=== PATIENT | female | born 1945 | race Caucasian/White ===

== ENCOUNTER 2020-01-19 15:25 | Outpatient (REF) | payer MEDICARE, SELFPAY ==
[2020-01-19 15:39] LABS: Glucose Urine UA NEG (NEG); Leukocyte Esterase Urine 1+ (NEG); Nitrite Urine NEG (NEG); PH >= 9.0 (5.0-8.0); Specific Gravity - Urine <= 1.005 (1.005-1.025); Urine Blood TRACE (NEG); Urine Ketones NEG (NEG)
[2020-01-19 15:42] LABS: Appearance Urine HAZY; Color Urine YELLOW; Urine Protein 2+ MG/DL (NEG-TRACE)
[2020-01-19 15:51] LABS: Bacteria Urine 2+ /LPF; RBC Urine 0-2 /HPF (0); Squamous Epithelial Cell Urine 1+ /LPF
== END 2020-01-19 15:26 | disposition home or self-care (01) ==
LOC: HO.LNP 15:25
PROVIDERS: Visit Provider Internal Medicine
DX: N39.0 Urinary tract infection, site not specified (principal)
CPT/HCPCS: 81001; 87086

== ENCOUNTER 2020-06-03 15:03 | Outpatient (REF) | payer MEDICARE, SELFPAY ==
[2020-06-03 15:20] LABS: MANUAL DIFF FLAG NO
[2020-06-03 15:34] LABS: Basophils Percent Auto 0.5 % (0-2); Eosinophils Absolute Auto 0.2 X10*3/uL (0.0-0.4); Eosinophils Percent Auto 2.5 % (0-4); Hematocrit 28.6 % (37-47); Hemoglobin 8.5 g/dl (12.0-16.0); Imm Gran Abs Auto 0.02 X10*3/uL (0.00-0.03); Imm Gran Pct Auto 0.3 % (0.0-0.4); Lymphocytes Absolute Auto 1.2 X10*3/uL (1.2-4.9); Mean Corpuscular HGB Conc 29.7 g/dl (31.0-35.0); Mean Corpuscular Hemoglobin 29.1 pg (27.0-33.0); Mean Corpuscular Volume 97.9 fL (80-98); Mean Platelet Volume 11.5 fL (9.4-12.3); Monocytes Absolute Auto 0.3 X10*3/uL (0.1-1.2); Monocytes Percent Auto 5.1 % (2-11); Neutrophils Absolute Auto 4.3 X10*3/uL (2.0-8.3); Neutrophils Percent Auto 71.6 % (45-73); Platelet Count 184 X10*3/uL (160-400); Red Blood Count 2.92 X10*6/uL (4.20-5.50); Red Cell Distribution Width 14.2 % (11.0-16.0); White Blood Count 6.1 X10*3/uL (4.8-10.8)
[2020-06-03 15:52] LABS: Glucose Urine UA NEG (NEG); Leukocyte Esterase Urine 2+ (NEG); Nitrite Urine POS (NEG); UACC Culture Trigger YES; Urine Blood 1+ (NEG); Urine Ketones NEG (NEG); Urine Protein 2+ MG/DL (NEG-TRACE)
[2020-06-03 15:53] LABS: Appearance Urine TURBID; Color Urine YELLOW
[2020-06-03 15:58] LABS: Albumin Level 3.3 g/dL (3.5-5.0); Calcium 8.2 mg/dL (8.4-10.2); Magnesium 2.6 mg/dL (1.6-2.6); Phosphorus 6.5 mg/dL (2.7-4.5)
[2020-06-03 16:06] LABS: Bacteria Urine 3+ /LPF; UACC CULT YES
[2020-06-03 16:13] LABS: Anion Gap 15 (12-20); Blood Urea Nitrogen 31 mg/dL (9-16); Calcium 9.5 mg/dL (8.4-10.2); Carbon Dioxide 28 mmol/L (22-29); Chloride 97 mmol/L (96-108); Estimated Glomerular Filt Rate > 60; Glucose Random 97 mg/dL (60-115); Potassium 3.5 mmol/L (3.3-5.1); Sodium 136 mmol/L (135-145)
[2020-06-03 16:22] LABS: Vitamin D 25-OH Total 20.3 ng/mL (>30)
[2020-06-03 16:26] LABS: Creatinine Urine 33.98 mg/dL; Total Protein Urine Random 204 mg/dL (<12)
[2020-06-03 17:10] LABS: Renal w Reflex Lab Use Only Order verified
[2020-06-07 11:07] LABS: Calcium (PTHI) 8.4 mg/dL (8.6-10.4); PTHI 179 pg/mL (14-64)
== END 2020-06-03 15:04 | disposition home or self-care (01) ==
LOC: HO.LNP 15:03
PROVIDERS: Referring Provider Internal Medicine Geriatric Medicine; Visit Provider Internal Medicine Nephrology
DX: E11.22 Type 2 diabetes mellitus with diabetic chronic kidney disease (principal); N18.4 Chronic kidney disease, stage 4 (severe); D63.1 Anemia in chronic kidney disease; D50.9 Iron deficiency anemia, unspecified
CPT/HCPCS: 80048; 81001; 82040; 82043; 82306; 82310; 83735; 83970; 84100; 84156; 85025; 87086

== ENCOUNTER 2020-07-06 10:53 | Inpatient (IN) | payer MEDICARE, SELFPAY ==
--- NOTE | ~2020-07-06 | XR_ITS ---
EXAMINATION: XR CHEST CLINICAL INFORMATION: Generalized weakness COMPARISON: Chest 05/17/2016 TECHNIQUE: Frontal view of the chest was obtained. FINDINGS: The lungs are well-expanded and clear. The heart size enlarged with increased pulmonary vascularity suspicious for mild congestion. No gross bony abnormality. XR/XR chest 1V IMPRESSION: Cardiomegaly with mild pulmonary vascular congestion.
[2020-07-06 11:15] VITALS: BP 143/82; BP 151/43; PULSE 84; RESP 16; TEMP 37.1; O2SAT 100; O2SAT 96; BMI 41.8
--- NOTE | 2020-07-06 11:57 | ECG_ITS ---
Test Reason : WEAKNESS Blood Pressure : / mmHG Vent. Rate : 085 BPM Atrial Rate : 085 BPM P-R Int : 176 ms QRS Dur : 132 ms QT Int : 406 ms P-R-T Axes : -14 -20 148 degrees QTc Int : 483 ms Sinus rhythm with Premature supraventricular complexes Left bundle branch block Abnormal ECG When compared with ECG of 16-JUL-2017 14:38, Premature supraventricular complexes are now Present Referred By: Kya Meade Electronically Signed By:LIA PEARSON
--- NOTE | 2020-07-06 11:58 | ED_ITS ---
HPI - General Adult General Chief complaint: General Medical Stated complaint: weakness/lethargy Time Seen by Provider: 07/06/20 11:55 Source: patient and EMS Mode of arrival: EMS Limitations: no limitations History of Present Illness HPI narrative: 75-year-old female came in for further evaluation of generalized weakness assessment. 75-year-old female who lives home with her son patient is mostly independent living, for the past 3 4 days decreased p.o. intake and feeling generalized weakness.. Patient has bilateral lower extremity swelling and chronic wound that is been taking care by a visiting nurse there is no acute issue was the wound today. Patient declined chest pain, shortness of breath. Related Data Home Medications Medication Instructions Recorded Confirmed acetaminophen 500 mg PO Q6H PRN 07/06/20 07/06/20 aspirin 81 mg PO DAILY 07/06/20 07/06/20 calcitriol 0.25 mcg PO MOWEFR@0900 07/06/20 07/06/20 cholecalciferol (vitamin D3) 50 mcg PO DAILY 07/06/20 07/06/20 [Vitamin D3] docusate sodium 100 mg PO BID 07/06/20 07/06/20 famotidine 20 mg PO DAILY 07/06/20 07/06/20 ferrous sulfate 325 mg PO DAILY 07/06/20 07/06/20 furosemide 80 mg PO DAILY 07/06/20 07/06/20 gabapentin 300 mg PO BID 07/06/20 07/06/20 hydralazine 100 mg PO BID 07/06/20 07/06/20 insulin glargine U-300 conc 34 unit SUBCUT BEDTIME 07/06/20 07/06/20 [Toujeo SoloStar U-300 Insulin] insulin lispro [Humalog KwikPen See Protocol SUBCUT TID 07/06/20 07/06/20 Insulin] lovastatin 40 mg PO BEDTIME 07/06/20 07/06/20 metolazone 2.5 mg PO MOWEFR@0900 07/06/20 07/06/20 sennosides [Senna Lax] 8.6 mg PO BEDTIME 07/06/20 07/06/20 Previous Rx's Medication Instructions Recorded blood sugar diagnostic #10 ea 02/05/20 lorazepam 0.5 mg tablet 0.5 mg PO BID PRN #180 tab 02/17/20 pen needle, diabetic 32 gauge x #400 ea 02/17/20 pen needle, diabetic 32 gauge x #400 ea 04/19/20 oxycodone 5 mg tablet 5 mg PO Q6H PRN #120 tab 06/24/20 Allergies Allergy/AdvReac Type Severity Reaction Status Date / Time pregabalin Allergy Unknown feet Verified 01/22/20 11:25 swelling Review of Systems Review of Systems: All other systems are reviewed and are negative Constitutional: Reports as per HPI and Reports no additional constitutional complaints Eyes: Reports as per HPI and Reports no additional eye complaints Reports system reviewed and no additional complaints, except as documented Cardiovascular: Reports as per HPI and Reports no additional cardiovascular complaints Respiratory: Reports as per HPI and Reports no additional respiratory complaints Gastrointestinal: Reports as per HPI and Reports no additional gastrointestinal complaints Genitourinary: Reports no additional female genitourinary complaints Musculoskeletal: Reports no additional musculoskeletal complaints Skin/Breast: Reports system reviewed and no additional complaints, except as docu Psychiatric: Reports no additional psychiatric complaints Endocrine: Reports no additional endocrine complaints Hematologic/Lymphatic: Reports no additional hematologic/lymphatic complaints Allergic/Immunologic: Reports no additional allergic/immunologic complaints Reports system reviewed and no additional complaints, except as documented and Reports Abnormal speech present [facility] Past Medical History Medical History Chronic renal insufficiency Diabetes type 2, uncontrolled Surgical History History of cystoscopy History of right cataract surgery History of tubal ligation Family History Family History Father Lung cancer Mother Hypertension Social History Social History Alcohol intake: never Smoking Status: Never smoker Advance Directives: Yes Advance Directives Information Provided: Yes Advance Directives on File: No Physical Exam Vital Signs: Vital Signs: Last Vital Signs Temp 97.7 F 07/06/20 13:14 Pulse 85 07/06/20 13:14 Resp 18 07/06/20 13:14 BP 185/50 H 07/06/20 13:14 Pulse Ox 97 07/06/20 13:14 Body Mass Index 41.8 Vital signs have been reviewed as appeared to be correct. Blood pressure normal. Heart rate normal. Respiration rate normal. Temperature normal. Oxygen saturation normal. Appearance: Alert. Oriented X3. No acute distress. Head: Normal external exam. Normocephalic. Atraumatic. No Kumari signs noted. No raccoon eyes noted Eyes: PERRLA. EOMI. Conjunctiva and sclera normal. Eyelids normal. ENT: TM's Normal. Pharynx normal. Uvula midline. Moist mucous membranes. No trismus noted. No drooling noted. No muffled voice noted. Neck: Normal inspection. Neck supple. FROM. No adenopathy. Thyroid Normal. No meningeal signs. No neck mass noted. CVS: Normal heart rate and rhythm. Heart sound normal. No murmurs noted. Pulses normal throughout. Respiratory: No respiratory distress. Painless inspiration. Breath sounds normal. No wheezes/rales/rhonchi noted. Chest nontender. No accessory muscle usage noted or decreased air movement noted. Abdomen: Soft and nontender. Bowel sounds normal in all 4 quadrants. No distention noted. No organomegaly noted. No visible injury noted. Back: No CVA tenderness. Full range of motion noted. Skin: Skin warm and dry. Normal skin color. Normal skin turgor. No rashes/lesions/lacerations noted. Extremities: Bilateral lower extremities +2 pitting edema edema, with chronic wound bilaterally. Neuro: Oriented X 3. No motor deficit. No sensory deficit. Reflexes normal. Course Course Course Narrative: Assessment and plan. 75-year-old female with chronic renal failure has not started dialysis yet presented with 3-4 days of generalized weakness decreased p.o. intake, not drinking enough fluid. Labs and finding are more consistent with UTI and dehydration without sepsis. Olvera was inserted with initially 400 cc of urine came out. Patient received IV fluids, ceftriaxone IV and will admit. Medical Decision Making Lab Data Lab results reviewed: Yes I reviewed the patient's lab results. Result diagrams: 07/06/20 12:25 07/06/20 12:25 Labs: Lab Results 07/06/20 07/06/20 07/06/20 Range/Units 12:25 12:25 12:25 WBC 8.3 (4.8-10.8) X10*3/uL RBC 3.02 L (4.20-5.50) X10*6/uL Hgb 8.7 L (12.0-16.0) g/dl Hct 29.8 L (37-47) % MCV 98.7 H (80-98) fL MCH 28.8 (27.0-33.0) pg MCHC 29.2 L (31.0-35.0) g/dl RDW 15.1 (11.0-16.0) % Plt Count 181 (160-400) X10*3/uL MPV 10.6 (9.4-12.3) fL Immature Gran % (Auto) 0.5 H (0.0-0.4) % Neut % (Auto) 78.0 H (45-73) % Lymph % (Auto) 16.4 L (20-40) % [place] % (Auto) 4.0 (2-11) % Eos % (Auto) 0.7 (0-4) % Baso % (Auto) 0.4 (0-2) % Lymph # (Auto) 1.4 (1.2-4.9) X10*3/uL [place] # (Auto) 0.3 (0.1-1.2) X10*3/uL Eos # (Auto) 0.1 (0.0-0.4) X10*3/uL Baso # (Auto) 0.0 (0.0-0.2) X10*3/uL Abs Immat Gran (auto) 0.04 H (0.00-0.03) X10*3/uL Absolute Neuts (auto) 6.5 (2.0-8.3) X10*3/uL Absolute Nucleated RBC 0.000 (0.0-0.012) X10*3/uL Nucleated RBC % (auto) 0.0 (0.0-0.2) /100WBC Sodium 146 H (135-145) mmol/L Potassium 4.9 D (3.3-5.1) mmol/L Chloride 116 H (96-108) mmol/L Carbon Dioxide 14 L (22-29) mmol/L Anion Gap 21 H (12-20) BUN 117 H* D (9-16) mg/dL Creatinine 4.78 H* (0.5-1.4) mg/dL Estim Creat Clear Calc 10.5 Estimated GFR 9 Random Glucose 96 (60-115) mg/dL Lactic Acid (0.5-2.0) mmol/L Calcium 7.9 L (8.4-10.2) mg/dL Total Bilirubin 0.2 (0.0-1.0) mg/dL Direct Bilirubin 0.2 (0.0-0.5) mg/dL AST 9 (5-31) U/L ALT < 6 (0-31) U/L Alkaline Phosphatase 90 (39-117) U/L Troponin I High Sens 11.7 (<3.5-17.0) ng/L B-Natriuretic Peptide 265 H (<100) pg/mL Total Protein 6.8 (6.5-8.0) g/dL Albumin 3.3 L (3.5-5.0) g/dL Lipase 35 (8-78) U/L Urine Color Urine Appearance Urine pH (5.0-8.0) Ur Specific [place] (1.005-1.025) Urine Protein (NEG-TRACE) MG/DL Urine Glucose (UA) (NEG) MG/DL Urine Ketones (NEG) MG/DL Urine Blood (NEG) Urine Nitrite (NEG) Ur Leukocyte Esterase (NEG) Urine RBC (0) /HPF Urine WBC (0-4) /HPF Ur Squamous Epith Cells /LPF Triple Phos Crystals /LPF Urine Bacteria /LPF COVID-19 ([facility]) (Negative) COVID-19 Clin Com 07/06/20 07/06/20 07/06/20 Range/Units 12:25 12:25 13:17 WBC (4.8-10.8) X10*3/uL RBC (4.20-5.50) X10*6/uL Hgb (12.0-16.0) g/dl Hct (37-47) % MCV (80-98) fL MCH (27.0-33.0) pg MCHC (31.0-35.0) g/dl RDW (11.0-16.0) % Plt Count (160-400) X10*3/uL MPV (9.4-12.3) fL Immature Gran % (Auto) (0.0-0.4) % Neut % (Auto) (45-73) % Lymph % (Auto) (20-40) % [place] % (Auto) (2-11) % Eos % (Auto) (0-4) % Baso % (Auto) (0-2) % Lymph # (Auto) (1.2-4.9) X10*3/uL [place] # (Auto) (0.1-1.2) X10*3/uL Eos # (Auto) (0.0-0.4) X10*3/uL Baso # (Auto) (0.0-0.2) X10*3/uL Abs Immat Gran (auto) (0.00-0.03) X10*3/uL Absolute Neuts (auto) (2.0-8.3) X10*3/uL Absolute Nucleated RBC (0.0-0.012) X10*3/uL Nucleated RBC % (auto) (0.0-0.2) /100WBC Sodium (135-145) mmol/L Potassium (3.3-5.1) mmol/L Chloride (96-108) mmol/L Carbon Dioxide (22-29) mmol/L Anion Gap (12-20) BUN (9-16) mg/dL Creatinine (0.5-1.4) mg/dL Estim Creat Clear Calc Estimated GFR Random Glucose (60-115) mg/dL Lactic Acid 0.5 (0.5-2.0) mmol/L Calcium (8.4-10.2) mg/dL Total Bilirubin (0.0-1.0) mg/dL Direct Bilirubin (0.0-0.5) mg/dL AST (5-31) U/L ALT (0-31) U/L Alkaline Phosphatase (39-117) U/L Troponin I High Sens (<3.5-17.0) ng/L B-Natriuretic Peptide (<100) pg/mL Total Protein (6.5-8.0) g/dL Albumin (3.5-5.0) g/dL Lipase (8-78) U/L Urine Color BROWN Urine Appearance TURBID Urine pH >= 9.0 H (5.0-8.0) Ur Specific [place] 1.010 (1.005-1.025) Urine Protein 3+ H (NEG-TRACE) MG/DL Urine Glucose (UA) NEG (NEG) MG/DL Urine Ketones 5 (NEG) MG/DL Urine Blood 3+ H (NEG) Urine Nitrite POS H (NEG) Ur Leukocyte Esterase 3+ H (NEG) Urine RBC TNTC H (0) /HPF Urine WBC TNTC H (0-4) /HPF Ur Squamous Epith Cells NONE /LPF Triple Phos Crystals TRACE /LPF Urine Bacteria 4+ /LPF COVID-19 ([facility]) Negative (Negative) COVID-19 Clin Com See Note Imaging Data Chest x-ray: Radiologist's impression: Cardiomegaly with mild pulmonary vascular congestion. ECG Data Interpretation: Sinus rhythm at 85 beats per minutes, left bundle branch block, unchanged from previous EKG. Discharge Plan Discharge Clinical Impression: Chronic renal insufficiency, Acute UTI, Acute dehydration Patient Disposition: Admitted As Inpatient Prescriptions: No Action (DME) OneTouch Ultra Blue Test Strip Strip See Rx Instructions .ROUTE .MEDSUPPLY Qty: 10 RF: 8 lorazepam 0.5 mg tablet 0.5 mg PO BID PRN (Reason: anxiety) Qty: 180 RF: 5 (DME) pen needle, diabetic [BD Ayehsa 2nd Gen Pen Needle] 32 gauge x 5/32 needle See Rx Instructions .MEDSUPPLY Qty: 400 RF: 4 (DME) pen needle, diabetic [BD Ayesha 2nd Gen Pen Needle] 32 gauge x 5/32 needle See Rx Instructions .MEDSUPPLY Qty: 400 RF: 4 oxycodone 5 mg tablet 5 mg PO Q6H PRN (Reason: pain) Qty: 120 RF: 0 metolazone 2.5 mg Tablet 2.5 mg PO MOWEFR@0900 RF: 0 sennosides [Senna Lax] 8.6 mg Tablet 8.6 mg PO BEDTIME RF: 0 aspirin 81 mg Tablet,Delayed Release (Dr/Ec) 81 mg PO DAILY RF: 0 acetaminophen 500 mg Tablet 500 mg PO Q6H PRN (Reason: Pain (Scale Score 1-3)) RF: 0 famotidine 20 mg Tablet 20 mg PO DAILY RF: 0 furosemide 80 mg Tablet 80 mg PO DAILY RF: 0 ferrous sulfate 325 mg (65 mg iron) Tablet 325 mg PO DAILY RF: 0 docusate sodium 100 mg Capsule 100 mg PO BID RF: 0 gabapentin 300 mg Capsule 300 mg PO BID RF: 0 hydralazine 50 mg Tablet 100 mg PO BID RF: 0 insulin lispro [Humalog KwikPen Insulin] 100 unit/mL Insulin Pen See Protocol unit SUBCUT TID RF: 0 cholecalciferol (vitamin D3) [Vitamin D3] 50 mcg (2,000 unit) Capsule 50 mcg PO DAILY RF: 0 Toujeo SoloStar U-300 Insulin 300 unit/mL (1.5 mL) Insulin Pen 34 unit SUBCUT BEDTIME RF: 0 lovastatin 40 mg tablet 40 mg PO BEDTIME RF: 0 calcitriol 0.25 mcg capsule 0.25 mcg PO MOWEFR@0900 RF: 0
[2020-07-06 12:34] LABS: MANUAL DIFF FLAG NO
[2020-07-06 12:38] LABS: Basophils Percent Auto 0.4 % (0-2); Eosinophils Absolute Auto 0.1 X10*3/uL (0.0-0.4); Eosinophils Percent Auto 0.7 % (0-4); Hematocrit 29.8 % (37-47); Hemoglobin 8.7 g/dl (12.0-16.0); Imm Gran Abs Auto 0.04 X10*3/uL (0.00-0.03); Imm Gran Pct Auto 0.5 % (0.0-0.4); Lymphocytes Absolute Auto 1.4 X10*3/uL (1.2-4.9); Lymphocytes Percent Auto 16.4 % (20-40); Mean Corpuscular HGB Conc 29.2 g/dl (31.0-35.0); Mean Corpuscular Hemoglobin 28.8 pg (27.0-33.0); Mean Corpuscular Volume 98.7 fL (80-98); Mean Platelet Volume 10.6 fL (9.4-12.3); Monocytes Absolute Auto 0.3 X10*3/uL (0.1-1.2); Neutrophils Absolute Auto 6.5 X10*3/uL (2.0-8.3); Platelet Count 181 X10*3/uL (160-400); Red Blood Count 3.02 X10*6/uL (4.20-5.50); Red Cell Distribution Width 15.1 % (11.0-16.0); White Blood Count 8.3 X10*3/uL (4.8-10.8)
[2020-07-06 12:56] LABS: Lactic Acid 0.5 mmol/L (0.5-2.0)
[2020-07-06 12:58] LABS: COVID-19 Test Negative (Negative)
[2020-07-06 13:04] LABS: Alanine Aminotransferase < 6 U/L (0-31); Albumin Level 3.3 g/dL (3.5-5.0); Alkaline Phosphatase 90 U/L (39-117); Anion Gap 21 (12-20); Aspartate Amino Transferase 9 U/L (5-31); Bilirubin Direct 0.2 mg/dL (0.0-0.5); Bilirubin Total 0.2 mg/dL (0.0-1.0); Blood Urea Nitrogen 117 mg/dL (9-16); Calcium 7.9 mg/dL (8.4-10.2); Carbon Dioxide 14 mmol/L (22-29); Chloride 116 mmol/L (96-108); Creatinine Clr Calc Pharmacy 10.5; Estimated Glomerular Filt Rate 9; Glucose Random 96 mg/dL (60-115); Lipase 35 U/L (8-78); Potassium 4.9 mmol/L (3.3-5.1); Sodium 146 mmol/L (135-145); Total Protein 6.8 g/dL (6.5-8.0)
[2020-07-06 13:05] LABS: B Type Natriuretic Peptide 265 pg/mL (<100); Troponin-I High Sensitivity 11.7 ng/L (<3.5-17.0)
[2020-07-06] MEDS: 0.9 % Sodium Chloride 1,000 ML 999 ML IVCONT ×2 (13:05→14:12)
[2020-07-06 13:14] VITALS: BP 185/50; PULSE 85; RESP 18; TEMP 36.5; O2SAT 97
[2020-07-06 13:27] LABS: Glucose Urine UA NEG (NEG); Leukocyte Esterase Urine 3+ (NEG); Nitrite Urine POS (NEG); PH >= 9.0 (5.0-8.0); UACC Culture Trigger YES; Urine Blood 3+ (NEG); Urine Ketones 5 MG/DL (NEG)
[2020-07-06 13:28] LABS: Appearance Urine TURBID; Color Urine BROWN; Urine Protein 3+ MG/DL (NEG-TRACE)
[2020-07-06 13:41] LABS: Bacteria Urine 4+ /LPF; RBC Urine TNTC /HPF (0); Triple Phosphate Crystal Urine TRACE /LPF; WBC Urine TNTC /HPF (0-4)
[2020-07-06] MEDS: cefTRIAXone sodium 1 GM in 0.9 % Sodium Chloride 50 ML IV (14:11)
[2020-07-06 14:44] VITALS: BP 176/58; PULSE 85; RESP 18; TEMP 36.4; O2SAT 97
--- NOTE | 2020-07-06 14:55 | PC.NURSE ---
Patient arrived from home, with weeping bilateral leg edema, and incontinent or foul smelling urine Patient cleaned up linens changed and placed in hospital clothing. Olvera cath placed labs done and meds given as ordered waiting for admission.
[2020-07-06 15:40] LABS: Glucose, Whole Blood 76 mg/dL (60-115)
--- NOTE | 2020-07-06 16:04 | PM.IMHP ---
History of Present Illness Date of Service: 07/06/20 Chief Complaint: lethargy 75F with pmh of CKD V presented with lethargy. patient states that for the last week or so she has been having decreasing appetite and po intake. she feels nauseous and lethargic. she is chronically edematous and sob with no changes. she has been sleeping in a recliner for the last few years. patient denies chest pain, fever, chills, cough. in ED noted to have worsening bun/cr of 117/4.78. patient does have an AV fistula that was placed several years ago and follows with dr hopkins. she aslo had a positive UA with questionable dysuria symptoms. Review of Systems Review of Systems: Constitutional: Denies fever, denies Chills Eyes: denies blurry vision ENT: denies sore throat CVS: denies chest pain Respiratory: dyspnea GI: no abdominal pain : dysuria MSK: denies neck pain Skin: denies rash Neuro: denies specific motor weakness Psych: denies suicidal ideation Endocrine: denies heat/cold intoleratnce Hematologic: denies easy bleeding Allergy: denies hives [facility] Medical History Chronic diastolic (congestive) heart failure CKD (chronic kidney disease), stage V COPD (chronic obstructive pulmonary disease) Diabetes type 2, uncontrolled Morbid obesity Functional capacity: uses cane/walker Family History Father Lung cancer Mother Hypertension Surgical History History of cystoscopy History of right cataract surgery History of tubal ligation Social History Alcohol intake: never Smoking Status: Never smoker Advance Directives: Yes Advance Directives Information Provided: Yes Advance Directives on File: No Meds Allergies Allergy/AdvReac Type Severity Reaction Status Date / Time pregabalin Allergy Unknown feet Verified 01/22/20 11:25 swelling Active Medications: Current Medications Generic Name Dose Route Start Last Admin Trade Name Freq PRN Reason Stop Dose Admin Pharmacy Consult 1 each 07/06/20 11:57 Consult Rx Perform Med Rec MISCELLANE ONCE PRN Consult order Home Medications Medication Instructions Recorded Confirmed Last Taken Type acetaminophen 500 mg PO Q6H PRN 07/06/20 07/06/20 07/05/20 History aspirin 81 mg PO DAILY 07/06/20 07/06/20 07/05/20 History calcitriol 0.25 mcg PO MOWEFR@0900 07/06/20 07/06/20 07/05/20 History cholecalciferol (vitamin D3) 50 mcg PO DAILY 07/06/20 07/06/20 07/05/20 History [Vitamin D3] docusate sodium 100 mg PO BID 07/06/20 07/06/20 07/05/20 History famotidine 20 mg PO DAILY 07/06/20 07/06/20 07/05/20 History ferrous sulfate 325 mg PO DAILY 07/06/20 07/06/20 07/05/20 History furosemide 80 mg PO DAILY 07/06/20 07/06/20 07/05/20 History gabapentin 300 mg PO BID 07/06/20 07/06/20 07/05/20 History hydralazine 100 mg PO BID 07/06/20 07/06/20 07/05/20 History insulin glargine U-300 conc 34 unit SUBCUT BEDTIME 07/06/20 07/06/20 07/05/20 History [Toujeo SoloStar U-300 Insulin] insulin lispro [Humalog KwikPen See Protocol SUBCUT TID 07/06/20 07/06/20 07/05/20 History Insulin] lovastatin 40 mg PO BEDTIME 07/06/20 07/06/20 07/05/20 History metolazone 2.5 mg PO MOWEFR@0900 07/06/20 07/06/20 07/05/20 History sennosides [Senna Lax] 8.6 mg PO BEDTIME 07/06/20 07/06/20 07/05/20 History Physical Exam Vital Signs and Narrative: Vital Signs: Last Vital Signs Temp 97.5 F 07/06/20 14:44 Pulse 85 07/06/20 14:44 Resp 18 07/06/20 14:44 BP 176/58 H 07/06/20 14:44 Pulse Ox 97 07/06/20 14:44 Body Mass Index 41.8 General: no acute distress, lethargic, edematous HEENT: atraumatic Neck: normal to visual inspection CVS: S1, S2, RRR Resp: diminished Chest: non tender GI: soft, non tender, non distended : no CVA tenderness Skin: no rashes Extremities: no edema Neuro: Oriented X3, grossly intact Psych: cooperative Results Labs CBC and Chem 7: 07/06/20 12:25 07/06/20 12:25 Labs: Laboratory Results - last 24 hr 07/06/20 07/06/20 07/06/20 12:25 12:25 12:25 MCV 98.7 H MCH 28.8 MCHC 29.2 L RDW 15.1 Plt Count 181 MPV 10.6 Immature Gran % (Auto) 0.5 H Neut % (Auto) 78.0 H Lymph % (Auto) 16.4 L [place] % (Auto) 4.0 Eos % (Auto) 0.7 Baso % (Auto) 0.4 Lymph # (Auto) 1.4 [place] # (Auto) 0.3 Eos # (Auto) 0.1 Baso # (Auto) 0.0 Abs Immat Gran (auto) 0.04 H Absolute Neuts (auto) 6.5 Absolute Nucleated RBC 0.000 Nucleated RBC % (auto) 0.0 Anion Gap 21 H Estim Creat Clear Calc 10.5 Estimated GFR 9 POC Glucose Random Glucose 96 Lactic Acid Calcium 7.9 L Total Bilirubin 0.2 Direct Bilirubin 0.2 AST 9 ALT < 6 Alkaline Phosphatase 90 Troponin I High Sens 11.7 B-Natriuretic Peptide 265 H Total Protein 6.8 Albumin 3.3 L Lipase 35 Urine Color Urine Appearance Urine pH Ur Specific [place] Urine Protein Urine Glucose (UA) Urine Ketones Urine Blood Urine Nitrite Ur Leukocyte Esterase Urine RBC Urine WBC Ur Squamous Epith Cells Triple Phos Crystals Urine Bacteria COVID-19 ([facility]) COVID-19 Clin Com 07/06/20 07/06/20 07/06/20 12:25 12:25 13:17 MCV MCH MCHC RDW Plt Count MPV Immature Gran % (Auto) Neut % (Auto) Lymph % (Auto) [place] % (Auto) Eos % (Auto) Baso % (Auto) Lymph # (Auto) [place] # (Auto) Eos # (Auto) Baso # (Auto) Abs Immat Gran (auto) Absolute Neuts (auto) Absolute Nucleated RBC Nucleated RBC % (auto) Anion Gap Estim Creat Clear Calc Estimated GFR POC Glucose Random Glucose Lactic Acid 0.5 Calcium Total Bilirubin Direct Bilirubin AST ALT Alkaline Phosphatase Troponin I High Sens B-Natriuretic Peptide Total Protein Albumin Lipase Urine Color BROWN Urine Appearance TURBID Urine pH >= 9.0 H Ur Specific [place] 1.010 Urine Protein 3+ H Urine Glucose (UA) NEG Urine Ketones 5 Urine Blood 3+ H Urine Nitrite POS H Ur Leukocyte Esterase 3+ H Urine RBC TNTC H Urine WBC TNTC H Ur Squamous Epith Cells NONE Triple Phos Crystals TRACE Urine Bacteria 4+ COVID-19 ([facility]) Negative COVID-19 Clin Com See Note 07/06/20 15:35 MCV MCH MCHC RDW Plt Count MPV Immature Gran % (Auto) Neut % (Auto) Lymph % (Auto) [place] % (Auto) Eos % (Auto) Baso % (Auto) Lymph # (Auto) [place] # (Auto) Eos # (Auto) Baso # (Auto) Abs Immat Gran (auto) Absolute Neuts (auto) Absolute Nucleated RBC Nucleated RBC % (auto) Anion Gap Estim Creat Clear Calc Estimated GFR POC Glucose 76 Random Glucose Lactic Acid Calcium Total Bilirubin Direct Bilirubin AST ALT Alkaline Phosphatase Troponin I High Sens B-Natriuretic Peptide Total Protein Albumin Lipase Urine Color Urine Appearance Urine pH Ur Specific [place] Urine Protein Urine Glucose (UA) Urine Ketones Urine Blood Urine Nitrite Ur Leukocyte Esterase Urine RBC Urine WBC Ur Squamous Epith Cells Triple Phos Crystals Urine Bacteria COVID-19 ([facility]) COVID-19 Clin Com Imaging Radiologist's Impressions: Impressions Chest X-Ray 07/06/20 11:57 IMPRESSION: Cardiomegaly with mild pulmonary vascular congestion. Assessment and Plan (1) ALEJANDRO (acute kidney injury): Status: Acute 75F presented with lethargy found to have worsening renal function metabolic encephalopathy and anorexia due to Uremia from ALEJANDRO on CKD V gentle hydration, monitor bmp, hold diuretics, nephrology eval has AV fistula DM basal bolus insulin chronic diastolic chf will be careful with hydration, holding diuretics morbid obesity weight loss COPD stable UTI ceftriaxone, follow up culture
[2020-07-06 18:00] VITALS: BP 149/56; PULSE 83; RESP 17; O2SAT 97
--- NOTE | 2020-07-06 19:19 | PC.NURSE ---
imc called to give report and rn will call back for report.
--- NOTE | 2020-07-06 19:30 | PC.NURSE ---
nurse to nurse report given to leonard ferrer. in 10 min the room will be ready
[2020-07-06 20:00] VITALS: BP 159/83; PULSE 81; RESP 20; TEMP 36; O2SAT 94
[2020-07-06 20:52] LABS: Glucose, Whole Blood 127 mg/dL (60-115)
[2020-07-06 21:03] VITALS: BP 150/84; PULSE 86
[2020-07-06] MEDS: hydrALAZINE HCl 50 MG TABLET 100 MG PO (21:03)
[2020-07-06] MEDS: Heparin Sodium,Porcine 5,000 UNIT/ML VIAL 5000 UNIT SUBCUT (21:05)
[2020-07-06] MEDS: Gabapentin 300 MG CAPSULE PO (21:05)
[2020-07-06] MEDS: Pravastatin Sodium 40 MG TABLET PO (21:05)
[2020-07-06] MEDS: LORazepam 0.5 MG TABLET PO (21:08)
[2020-07-06] MEDS: Lactated Ringers 500 ML 50 ML IVCONT (21:15)
[2020-07-07] VITALS (7 sets, daily range): BP systolic 121–184; BP diastolic 49–76; PULSE 78–88; RESP 18–20; TEMP 36.1–36.7; O2SAT 93–96; BMI 41.8
[2020-07-07] MEDS: 0.9 % Sodium Chloride Flush 3 ML SYRINGE IVFLUSH ×2 (03:13→09:37)
[2020-07-07 06:09] LABS: MANUAL DIFF FLAG NO
[2020-07-07 06:37] LABS: Basophils Percent Auto 0.3 % (0-2); Eosinophils Absolute Auto 0.2 X10*3/uL (0.0-0.4); Eosinophils Percent Auto 1.7 % (0-4); Hematocrit 27.1 % (37-47); Hemoglobin 7.9 g/dl (12.0-16.0); Imm Gran Abs Auto 0.03 X10*3/uL (0.00-0.03); Imm Gran Pct Auto 0.3 % (0.0-0.4); Lymphocytes Absolute Auto 1.8 X10*3/uL (1.2-4.9); Lymphocytes Percent Auto 20.3 % (20-40); Mean Corpuscular HGB Conc 29.2 g/dl (31.0-35.0); Mean Corpuscular Hemoglobin 28.6 pg (27.0-33.0); Mean Corpuscular Volume 98.2 fL (80-98); Monocytes Absolute Auto 0.5 X10*3/uL (0.1-1.2); Monocytes Percent Auto 5.7 % (2-11); Neutrophils Absolute Auto 6.2 X10*3/uL (2.0-8.3); Neutrophils Percent Auto 71.7 % (45-73); Platelet Count 165 X10*3/uL (160-400); Red Blood Count 2.76 X10*6/uL (4.20-5.50); Red Cell Distribution Width 15.3 % (11.0-16.0); White Blood Count 8.7 X10*3/uL (4.8-10.8)
[2020-07-07 06:39] LABS: Anion Gap 17 (12-20); Blood Urea Nitrogen 116 mg/dL (9-16); Calcium 7.9 mg/dL (8.4-10.2); Carbon Dioxide 14 mmol/L (22-29); Chloride 120 mmol/L (96-108); Potassium 5.1 mmol/L (3.3-5.1); Sodium 146 mmol/L (135-145)
[2020-07-07 06:41] LABS: Creatinine Clr Calc Pharmacy 11.1; Estimated Glomerular Filt Rate 10; Glucose Random 52 mg/dL (60-115)
[2020-07-07 07:32] LABS: Glucose, Whole Blood 169 mg/dL (60-115)
--- NOTE | 2020-07-07 09:27 | MHC.CM.PN ---
IMM 07/07/20 Female 75 dx ALEJANDRO She lives with her son. She uses a walker and requires assist with ADLs. She has a [employer] thru [facility] 5 hours/week. She also receives VNA services 3 x a week from [facility]. The Pt states that she has a HCP. It is documented that [facility] has the HCP on file. Unable to locate HCP. record. A copy has been requested. DP resume [facility]/[employer] and [facility] homecare services. The Pts family will provide transportation. CM will follow.
[2020-07-07] MEDS: Heparin Sodium,Porcine 5,000 UNIT/ML VIAL 5000 UNIT SUBCUT ×2 (09:37→21:27)
[2020-07-07] MEDS: hydrALAZINE HCl 50 MG TABLET 100 MG PO ×2 (09:38→21:27)
[2020-07-07] MEDS: Famotidine 20 MG TABLET PO (09:38)
[2020-07-07] MEDS: Cholecalciferol (Vitamin D3) 25 MCG TABLET 50 MCG PO (09:38)
[2020-07-07] MEDS: Aspirin Enteric Coated 81 MG TABLET.DR PO (09:38)
[2020-07-07] MEDS: oxyCODONE HCl Immed Release 5 MG TABLET PO (09:38)
[2020-07-07] MEDS: Docusate Sodium 100 MG CAPSULE PO ×2 (09:44→21:27)
[2020-07-07] MEDS: Ferrous Sulfate 324 MG TABLET.DR PO (09:44)
[2020-07-07] MEDS: Gabapentin 300 MG CAPSULE PO ×2 (09:44→21:27)
--- NOTE | 2020-07-07 11:17 | MHC.CLN ---
RE: CONSULT RECOMMEND STARTING ROSA BID AND PROSOURCE BID TO PROMOTE WOUND HEALING SEE ALSO CLINICAL NUTRITION ASSESSMENT
--- NOTE | 2020-07-07 11:29 | PM.CNNEP ---
History of Present Illness Reason for Consult Consult date: 07/07/20 Reason for consult: Uremia Requesting physician: Maurice Boggs Chief Complaint Chief complaint: ALEJANDRO History of Present Illness Narrative: 75F with CKD V presented with lethargy. She states that for the last week or so she has been having decreasing appetite and po intake. she feels nauseous and lethargic. she is chronically edematous and sob with no changes. she has been sleeping in a recliner for the last few years. patient denies chest pain, fever, chills, cough. in ED noted to have worsening bun/cr of 117/4.78. patient does have an AV fistula that was placed several years ago and follows with dr hopkins. Nephrology has been consulted to assist in her clinical care during her current hospital stay Review of Systems Review of Systems Yes all other systems are reviewed and are negative PMF Past Medical History Medical History Chronic diastolic (congestive) heart failure CKD (chronic kidney disease), stage V COPD (chronic obstructive pulmonary disease) Diabetes type 2, uncontrolled Morbid obesity Functional capacity: uses cane/walker Family History Family History Father Lung cancer Mother Hypertension Surgical History Surgical History History of cystoscopy History of right cataract surgery History of tubal ligation Social History Social History Household Members: Children Housing: House Do you presently have visiting nurse or other home services: Yes Alcohol intake: never Smoking Status: Never smoker Use of substances other than those prescribed or required for medical reasons: No Currently Displaying Signs/Symptoms of Drug Intoxication Withdrawal: No Have you been hit, kicked, punched, or otherwise hurt by someone within the past year? If so, by whom?: No Do you feel safe in your current relationship?: No Current Relationship Is there a partner from a previous relationship who is making you feel unsafe now?: No Are you made to feel afraid or neglected: No Advance Directives: Yes Advance Directives Information Provided: Yes Advance Directives on File: No Advance Directives Date on File: 07/06/20 Do you have thoughts of harming others: None Do you have a plan to hurt others: No Plan service: No Current occupational status: retired Meds Allergies Allergy/AdvReac Type Severity Reaction Status Date / Time pregabalin Allergy Unknown feet Verified 01/22/20 11:25 swelling Active Medications: Current Medications Generic Name Dose Route Start Last Admin Trade Name Freq PRN Reason Stop Dose Admin Acetaminophen 650 mg 07/06/20 19:36 Acetaminophen 325 Mg Tablet PO Q6H PRN Pain (Scale Score 1-3) Aspirin 81 mg 07/07/20 09:00 07/07/20 09:38 Aspirin Enteric Coated 81 Mg Tablet. PO 81 mg DAILY DAVE Administration Calcitriol 0.25 mcg 07/08/20 09:00 Calcitriol 0.25 Mcg Capsule PO MOWEFR@0900 [facility] Docusate Sodium 100 mg 07/06/20 21:00 07/07/20 09:44 Docusate Sodium 100 Mg Capsule PO 100 mg BID [facility] Administration Famotidine 20 mg 07/07/20 09:00 07/07/20 09:38 Famotidine 20 Mg Tablet PO 20 mg DAILY DAVE Administration Ferrous Sulfate 324 mg 07/07/20 09:00 07/07/20 09:44 Ferrous Sulfate 324 Mg Tablet. PO 324 mg DAILY DAVE Administration Gabapentin 300 mg 07/06/20 21:00 07/07/20 09:44 Gabapentin 300 Mg Capsule PO 300 mg BID [facility] Administration Heparin Sodium (Porcine) 5,000 unit 07/06/20 20:00 07/07/20 09:37 Heparin Sodium,Porcine 5,000 Unit/Ml Vial SUBCUT 5,000 unit Q12H [facility] Administration Hydralazine HCl 100 mg 07/06/20 21:00 07/07/20 09:38 Hydralazine Hcl 50 Mg Tablet PO 100 mg BID [facility] Administration Protocol Ceftriaxone Sodium 1 gm/ 50 mls @ 100 mls/hr 07/07/20 13:00 Sodium Chloride IV Q24H [facility] Insulin Glargine 27 unit 07/06/20 21:00 07/06/20 21:05 Insulin Glargine,Hum.Rec.Anlog 100 Unit/Ml 10 Ml Vial SUBCUT Not Given BEDTIME [facility] Insulin Human Lispro 0 unit 07/06/20 19:30 07/07/20 07:07 Insulin Lispro 100 Unit/Ml 3 Ml Vial SUBCUT Not Given QIDACHS [facility] Protocol Lorazepam 0.5 mg 07/06/20 19:30 07/06/20 21:08 Lorazepam 0.5 Mg Tablet PO 0.5 mg BID PRN Administration anxiety Mannitol 12.5 gm 07/08/20 06:17 Mannitol 12.5 Gm/50 Ml Vial IV 07/08/20 06:18 ONCE ONE Oxycodone HCl 5 mg 07/06/20 19:30 07/07/20 09:38 Oxycodone Hcl Immed Release 5 Mg Tablet PO 5 mg Q12H PRN Administration pain Pharmacy Consult 1 each 07/06/20 11:57 Consult Rx Perform Med Rec MISCELLANE ONCE PRN Consult order Pravastatin Sodium 40 mg 07/06/20 21:00 07/06/20 21:05 Pravastatin Sodium 40 Mg Tablet PO 40 mg BEDTIME [facility] Administration Senna 8.6 mg 07/06/20 21:00 07/06/20 21:06 Sennosides 8.6 Mg Tablet PO Not Given BEDTIME [facility] Sodium Chloride 3 ml 07/07/20 00:00 07/07/20 09:37 0.9 % Sodium Chloride Flush 3 Ml Syringe IVFLUSH 3 ml QSHIFT [facility] Administration Vitamin D 50 mcg 07/07/20 09:00 07/07/20 09:38 Cholecalciferol (Vitamin D3) 25 Mcg Tablet PO 50 mcg DAILY D[facility] Administration Home Medications Medication Instructions Recorded Confirmed Last Taken Type acetaminophen 500 mg PO Q6H PRN 07/06/20 07/06/20 07/05/20 History aspirin 81 mg PO DAILY 07/06/20 07/06/20 07/05/20 History calcitriol 0.25 mcg PO MOWEFR@0900 07/06/20 07/06/20 07/05/20 History cholecalciferol (vitamin D3) 50 mcg PO DAILY 07/06/20 07/06/20 07/05/20 History [Vitamin D3] docusate sodium 100 mg PO BID 07/06/20 07/06/20 07/05/20 History famotidine 20 mg PO DAILY 07/06/20 07/06/20 07/05/20 History ferrous sulfate 325 mg PO DAILY 07/06/20 07/06/20 07/05/20 History furosemide 80 mg PO DAILY 07/06/20 07/06/20 07/05/20 History gabapentin 300 mg PO BID 07/06/20 07/06/20 07/05/20 History hydralazine 100 mg PO BID 07/06/20 07/06/20 07/05/20 History insulin glargine U-300 conc 34 unit SUBCUT BEDTIME 07/06/20 07/06/20 07/05/20 History [Tousho SoloStar U-300 Insulin] insulin lispro [Humalog KwikPen See Protocol SUBCUT TID 07/06/20 07/06/20 07/05/20 History Insulin] lovastatin 40 mg PO BEDTIME 07/06/20 07/06/20 07/05/20 History metolazone 2.5 mg PO MOWEFR@0900 07/06/20 07/06/20 07/05/20 History sennosides [Senna Lax] 8.6 mg PO BEDTIME 07/06/20 07/06/20 07/05/20 History Physical Exam Vital Signs: Last Vital Signs Temp 97.0 F 07/07/20 07:23 Pulse 88 07/07/20 09:38 Resp 20 07/07/20 07:23 BP 174/63 H 07/07/20 09:38 Pulse Ox 93 07/07/20 07:23 Body Mass Index 41.8 Const General: cooperative Eyes EOM: EOMs intact bilaterally Neck Neck: Yes JVD Resp Auscultation: diminished lung sounds Cardio Rate: regular rate GI Palpation (GI): Soft to palpation Neuro General: moves all extremities Results Lab Results Result Diagrams: 07/07/20 05:18 07/07/20 05:18 Lab results: Chemistry 07/06/20 07/07/20 12:25 05:18 Sodium 146 H 146 H Potassium 4.9 D 5.1 Carbon Dioxide 14 L 14 L BUN 117 H* D 116 H* Creatinine 4.78 H* 4.51 H* Calcium 7.9 L 7.9 L Hematology 07/06/20 07/07/20 12:25 05:18 WBC 8.3 8.7 Hgb 8.7 L 7.9 L Plt Count 181 165 Urinalysis 07/06/20 13:17 Urine Color BROWN Urine Appearance TURBID Urine pH >= 9.0 H Ur Specific [place] 1.010 Urine Protein 3+ H Urine Glucose (UA) NEG Urine Ketones 5 Urine Blood 3+ H Urine Nitrite POS H Ur Leukocyte Esterase 3+ H Urine RBC TNTC H Urine WBC TNTC H Ur Squamous Epith Cells NONE Assessment and Plan (1) ESRD (end stage renal disease): Problem details: Uremic ; Hypervolemic Has an AVF; Shall initiate HD today Will dialyze for 3 days in a row Iron studies AM; Will start Procrit after reviewing Iron studies PTH and VItamin D levels Discontinue fluids; Phosphorus levels Shall arrange outpt HD spot; Will follow up Status: Acute
[2020-07-07 11:37] LABS: Glucose, Whole Blood 121 mg/dL (60-115)
--- NOTE | 2020-07-07 13:27 | HO.PM.IMPN ---
Subjective Subjective Date of Service: 07/07/20 Interval History: seen and examined reports feeling the same -- terrible reports no appetite knows shes in the hospital ROS General - no fevers or chills Cardiovascular - no chest pain Respiratory - no shortness of breath or cough Abdominal- no appetite Physical Exam Vital Signs: Vital Signs: Last Vital Signs Temp 97.2 F 07/07/20 11:29 Pulse 88 07/07/20 11:29 Resp 18 07/07/20 11:29 BP 164/76 H 07/07/20 11:29 Pulse Ox 93 07/07/20 11:29 Body Mass Index 41.8 Const: Other: General - no acute distress, appears comfortable Cardiovascular - regular rate and rhythm, S1-S2; +JVF Lungs - normal respiratory effort, clear to auscultation bilaterally, no wheezing Abdomen - soft, nontender, no rebound or guarding Extremities - +edema Neuro - aaox3 Objective Data Current Medications Generic Name Dose Route Start Last Admin Trade Name Freq PRN Reason Stop Dose Admin Acetaminophen 650 mg 07/06/20 19:36 Acetaminophen 325 Mg Tablet PO Q6H PRN Pain (Scale Score 1-3) Aspirin 81 mg 07/07/20 09:00 07/07/20 09:38 Aspirin Enteric Coated 81 Mg Tablet. PO 81 mg DAILY DAVE Administration Calcitriol 0.25 mcg 07/08/20 09:00 Calcitriol 0.25 Mcg Capsule PO MOWEFR@0900 [facility] Docusate Sodium 100 mg 07/06/20 21:00 07/07/20 09:44 Docusate Sodium 100 Mg Capsule PO 100 mg BID [facility] Administration Famotidine 20 mg 07/07/20 09:00 07/07/20 09:38 Famotidine 20 Mg Tablet PO 20 mg DAILY [facility] Administration Ferrous Sulfate 324 mg 07/07/20 09:00 07/07/20 09:44 Ferrous Sulfate 324 Mg Tablet. PO 324 mg DAILY [facility] Administration Gabapentin 300 mg 07/06/20 21:00 07/07/20 09:44 Gabapentin 300 Mg Capsule PO 300 mg BID [facility] Administration Heparin Sodium (Porcine) 5,000 unit 07/06/20 20:00 07/07/20 09:37 Heparin Sodium,Porcine 5,000 Unit/Ml Vial SUBCUT 5,000 unit Q12H [facility] Administration Hydralazine HCl 100 mg 07/06/20 21:00 07/07/20 09:38 Hydralazine Hcl 50 Mg Tablet PO 100 mg BID [facility] Administration Protocol Ceftriaxone Sodium 1 gm/ 50 mls @ 100 mls/hr 07/07/20 13:00 Sodium Chloride IV Q24H [facility] Insulin Glargine 27 unit 07/06/20 21:00 07/06/20 21:05 Insulin Glargine,Hum.Rec.Anlog 100 Unit/Ml 10 Ml Vial SUBCUT Not Given BEDTIME [facility] Insulin Human Lispro 0 unit 07/06/20 19:30 07/07/20 12:39 Insulin Lispro 100 Unit/Ml 3 Ml Vial SUBCUT Not Given QIDACHS [facility] Protocol Lorazepam 0.5 mg 07/06/20 19:30 07/06/20 21:08 Lorazepam 0.5 Mg Tablet PO 0.5 mg BID PRN Administration anxiety Mannitol 12.5 gm 07/08/20 06:17 Mannitol 12.5 Gm/50 Ml Vial IV 07/08/20 06:18 ONCE ONE Oxycodone HCl 5 mg 07/06/20 19:30 07/07/20 09:38 Oxycodone Hcl Immed Release 5 Mg Tablet PO 5 mg Q12H PRN Administration pain Pharmacy Consult 1 each 07/06/20 11:57 Consult Rx Perform Med Rec MISCELLANE ONCE PRN Consult order Pravastatin Sodium 40 mg 07/06/20 21:00 07/06/20 21:05 Pravastatin Sodium 40 Mg Tablet PO 40 mg BEDTIME [facility] Administration Senna 8.6 mg 07/06/20 21:00 07/06/20 21:06 Sennosides 8.6 Mg Tablet PO Not Given BEDTIME [facility] Sodium Chloride 3 ml 07/07/20 00:00 07/07/20 09:37 0.9 % Sodium Chloride Flush 3 Ml Syringe IVFLUSH 3 ml QSHIFT [facility] Administration Vitamin D 50 mcg 07/07/20 09:00 07/07/20 09:38 Cholecalciferol (Vitamin D3) 25 Mcg Tablet PO 50 mcg DAILY [facility]AVE Administration Labs CBC & Chem 7: 07/07/20 05:18 07/07/20 05:18 Microbiology Microbiology Results: Microbiology 07/06/20 13:16 Urine [place] Urine Culture - Final Assessment and Plan (1) ALEJANDRO (acute kidney injury): Status: Acute Assessment and Plan: 75 yo F with a PMH of CKD V who presented with confusion and anorexia. Found to have worsening renal failure and uremia and admitted for: 1. ALEJANDRO on CKD, now progressed to ESRD Nephrology consult Plan for dialysis to start today with plans to dialyze 3 days in a row stop IVF 2. Metabolic encephalopathy from Uremia 3. DM basal + bolus DM diet 4. COPD not in exacerbation PRN inhalers 5. Morbid obesity weight loss encouraged 6. UTI empiric rocephin c&s mixed Full Code DVT pptx, subcut. heparin
[2020-07-07] MEDS: Acetaminophen 325 MG TABLET 650 MG PO (14:14)
[2020-07-07 16:24] LABS: Glucose, Whole Blood 134 mg/dL (60-115)
[2020-07-07] MEDS: cefTRIAXone sodium 1 GM in 0.9 % Sodium Chloride 50 ML IV (17:19)
[2020-07-07] MEDS: Insulin Glargine,Hum.rec.anlog 100 UNIT/ML 10 ML VIAL 27 UNIT SUBCUT (21:27)
[2020-07-07] MEDS: Pravastatin Sodium 40 MG TABLET PO (21:27)
[2020-07-07] MEDS: Sennosides 8.6 MG TABLET PO (21:27)
[2020-07-08] VITALS (8 sets, daily range): BP systolic 128–164; BP diastolic 50–76; PULSE 69–88; RESP 16–20; TEMP 36.4–37.1; O2SAT 91–96
[2020-07-08] MEDS: 0.9 % Sodium Chloride Flush 3 ML SYRINGE IVFLUSH ×3 (00:14→16:59)
[2020-07-08] MEDS: oxyCODONE HCl Immed Release 5 MG TABLET PO (01:45)
[2020-07-08 04:58] LABS: HBS Num1 1.04 mIU/mL (0-7.99); Hepatitis B Core Antibody Nonreactive (Nonreactive); ~HepC Num1 0.11 S/CO (0.00-0.79); ~Hepatitis B Surface Antibody NONREACTIVE (Nonreactive); ~Hepatitis C Antibody Nonreactive (Nonreactive)
[2020-07-08 05:03] LABS: HBsAGNum1 0.12 S/CO (0.00-0.99); Hepatitis B Surface Antigen Negative (Negative)
[2020-07-08 07:23] LABS: Glucose, Whole Blood 63 mg/dL (60-115)
[2020-07-08] MEDS: Acetaminophen 325 MG TABLET 650 MG PO ×2 (07:49→16:58)
[2020-07-08] MEDS: Heparin Sodium,Porcine 5,000 UNIT/ML VIAL 5000 UNIT SUBCUT ×2 (07:49→21:23)
[2020-07-08] MEDS: Aspirin Enteric Coated 81 MG TABLET.DR PO (07:50)
[2020-07-08] MEDS: hydrALAZINE HCl 50 MG TABLET 100 MG PO ×2 (08:06→21:24)
[2020-07-08] MEDS: Ferrous Sulfate 324 MG TABLET.DR PO (08:07)
[2020-07-08] MEDS: Gabapentin 300 MG CAPSULE PO ×2 (08:07→21:24)
[2020-07-08] MEDS: Famotidine 20 MG TABLET PO (08:07)
[2020-07-08] MEDS: calcitrioL 0.25 MCG CAPSULE PO (08:07)
[2020-07-08] MEDS: Cholecalciferol (Vitamin D3) 25 MCG TABLET 50 MCG PO (08:07)
[2020-07-08] MEDS: Docusate Sodium 100 MG CAPSULE PO ×2 (08:07→21:24)
--- NOTE | 2020-07-08 10:34 | P.PNNP_ITS ---
Subjective Subjective Date of Service: 07/08/20 Interval history: Seen AM on HD. Venous needle infiltrated. Still has uremic symptoms. Outpatient HD spot requested in [facility] Unit Physical Exam Vital Signs: Vital Signs: Last Vital Signs Temp 98.2 F 07/08/20 09:03 Pulse 72 07/08/20 09:03 Resp 18 07/08/20 09:03 BP 164/72 H 07/08/20 09:03 Pulse Ox 95 07/08/20 07:05 Body Mass Index 41.8 Const: General: alert HENMT: Mouth: moist mucous membranes Eyes: EOM: EOMs intact bilaterally Neck: Neck: Yes supple Resp: Auscultation: diminished lung sounds Cardio: Rate: regular rate GI: Palpation (GI): Soft to palpation Neuro: Other: Asterixis + Objective Data Labs CBC & Chem 7: 07/07/20 05:18 07/07/20 05:18 Labs: Laboratory Results - last 24 hr 07/07/20 07/07/20 07/07/20 11:33 12:00 16:18 POC Glucose 121 H 134 H Hep Bs Antigen Negative Hep Bs Antibody NONREACTIVE Hep B Core Total Ab Nonreactive Hepatitis C Ab (EIA) Nonreactive 07/08/20 07:07 POC Glucose 63 Hep Bs Antigen Hep Bs Antibody Hep B Core Total Ab Hepatitis C Ab (EIA) Microbiology Microbiology Results: Microbiology 07/06/20 12:25 Blood - Venous Blood Culture - Preliminary No growth after 24 hours. 07/06/20 12:25 Blood - Venous Blood Culture - Preliminary No growth after 24 hours. 07/06/20 13:16 Urine [place] Urine Culture - Final Assessment & Plan Assessment and plan (1) ESRD (end stage renal disease): Problem details: Uremic ; Hypervolemic Has an AVF; Had HD yesterday Venous needle infiltrated on HD this AM Will dialyze for 3 days in a row( ordered) Iron studies AM; Will start Procrit after reviewing Iron studies PTH and VItamin D levels ordered along with phosphorus levels outpt HD spot requested in [facility] unit( details pending); Will follow up Status: Acute Time Spent With Patient Time: Total time spent is greater than 50% in coordination of care (as documented) at patient's floor/unit and/or counseling patient:
[2020-07-08 10:51] LABS: Anion Gap 19 (12-20); Blood Urea Nitrogen 75 mg/dL (9-16); Carbon Dioxide 15 mmol/L (22-29); Chloride 112 mmol/L (96-108); Creatinine Clr Calc Pharmacy 13.9; Estimated Glomerular Filt Rate 12; Potassium 4.5 mmol/L (3.3-5.1); Sodium 141 mmol/L (135-145)
[2020-07-08 11:32] LABS: Glucose, Whole Blood 76 mg/dL (60-115)
[2020-07-08] MEDS: ondansetron HCL 4 MG/2 ML VIAL IVPUSH ×2 (11:39→21:23)
--- NOTE | 2020-07-08 13:02 | MHC.CM.PN ---
DP Female 75 DX ALEJANDRO The patient will have HD here. Her discharge is anticipated Saturday. Dischage to home with son. Familywill provide transportation.
--- NOTE | 2020-07-08 14:15 | P.PNIM_ITS ---
Subjective Subjective Date of Service: 07/08/20 Interval History: Patient feels nauseous this morning, venous needle infiltrated during hemodialysis this a.m. no other acute issues overnight. ROS General no headache ,no dizziness no fever chills. CVS no chest pain, no palpitation. Respiratory no cough , no shortness of breath Gastrointestinal has nausea, no vomiting, no abdominal pain Physical Exam Vital Signs: Vital Signs: Last Vital Signs Temp 98.2 F 07/08/20 09:03 Pulse 80 07/08/20 12:00 Resp 20 07/08/20 12:00 BP 148/67 H 07/08/20 12:00 Pulse Ox 96 07/08/20 12:00 Body Mass Index 41.8 General no acute distress. Neck supple no JVD. CVS regular rate rhythm, Respiratory diminished breath sounds at base, no respiratory distress, no wheeze, no rhonchi. Gastrointestinal abdomen soft, nontender, bowel sounds audible, no guarding , no rigidity. Extremities bilateral pitting edema. Neuro nonfocal ,speech clear. Skin no rash Objective Data Current Medications Generic Name Dose Route Start Last Admin Trade Name Freq PRN Reason Stop Dose Admin Acetaminophen 650 mg 07/06/20 19:36 07/08/20 07:49 Acetaminophen 325 Mg Tablet PO 650 mg Q6H PRN Administration Pain (Scale Score 1-3) Aspirin 81 mg 07/07/20 09:00 07/08/20 07:50 Aspirin Enteric Coated 81 Mg Tablet. PO 81 mg DAILY [facility] Administration Calcitriol 0.25 mcg 07/08/20 09:00 07/08/20 08:07 Calcitriol 0.25 Mcg Capsule PO 0.25 mcg MOWEFR@0900 [facility] Administration Docusate Sodium 100 mg 07/06/20 21:00 07/08/20 08:07 Docusate Sodium 100 Mg Capsule PO 100 mg BID [facility] Administration Famotidine 20 mg 07/07/20 09:00 07/08/20 08:07 Famotidine 20 Mg Tablet PO 20 mg DAILY [facility] Administration Ferrous Sulfate 324 mg 07/07/20 09:00 07/08/20 08:07 Ferrous Sulfate 324 Mg Tablet. PO 324 mg DAILY [facility] Administration Gabapentin 300 mg 07/06/20 21:00 07/08/20 08:07 Gabapentin 300 Mg Capsule PO 300 mg BID [facility] Administration Heparin Sodium (Porcine) 5,000 unit 07/06/20 20:00 07/08/20 07:49 Heparin Sodium,Porcine 5,000 Unit/Ml Vial SUBCUT 5,000 unit Q12H [facility] Administration Hydralazine HCl 100 mg 07/06/20 21:00 07/08/20 08:06 Hydralazine Hcl 50 Mg Tablet PO 100 mg BID [facility] Administration Protocol Ceftriaxone Sodium 1 gm/ 50 mls @ 100 mls/hr 07/07/20 13:00 07/07/20 17:58 Sodium Chloride IV Infused Q24H [facility] Infusion Insulin Glargine 27 unit 07/06/20 21:00 07/07/20 21:27 Insulin Glargine,Hum.Rec.Anlog 100 Unit/Ml 10 Ml Vial SUBCUT 27 unit BEDTIME [facility] Administration Insulin Human Lispro 0 unit 07/06/20 19:30 07/08/20 11:36 Insulin Lispro 100 Unit/Ml 3 Ml Vial SUBCUT Not Given QIDACHS [facility] Protocol Lorazepam 0.5 mg 07/06/20 19:30 07/06/20 21:08 Lorazepam 0.5 Mg Tablet PO 0.5 mg BID PRN Administration anxiety Ondansetron HCl 4 mg 07/08/20 11:30 07/08/20 11:39 Ondansetron Hcl 4 Mg/2 Ml Vial IVPUSH 4 mg Q8H PRN Administration Nausea Oxycodone HCl 5 mg 07/06/20 19:30 07/08/20 01:45 Oxycodone Hcl Immed Release 5 Mg Tablet PO 5 mg Q12H PRN Administration pain Pharmacy Consult 1 each 07/06/20 11:57 Consult Rx Perform Med Rec MISCELLANE ONCE PRN Consult order Pravastatin Sodium 40 mg 07/06/20 21:00 07/07/20 21:27 Pravastatin Sodium 40 Mg Tablet PO 40 mg BEDTIME [facility] Administration Senna 8.6 mg 07/06/20 21:00 07/07/20 21:27 Sennosides 8.6 Mg Tablet PO 8.6 mg BEDTIME [facility] Administration Sodium Chloride 3 ml 07/07/20 00:00 07/08/20 07:49 0.9 % Sodium Chloride Flush 3 Ml Syringe IVFLUSH 3 ml QSHIFT [facility] Administration Vitamin D 50 mcg 07/07/20 09:00 07/08/20 08:07 Cholecalciferol (Vitamin D3) 25 Mcg Tablet PO 50 mcg DAILY [facility] Administration Labs CBC & Chem 7: 07/07/20 05:18 07/08/20 10:16 Microbiology Microbiology Results: Microbiology 07/06/20 12:25 Blood - Venous Blood Culture - Preliminary No growth after 24 hours. 07/06/20 12:25 Blood - Venous Blood Culture - Preliminary No growth after 24 hours. 07/06/20 13:16 Urine [place] Urine Culture - Final Assessment and Plan (1) ESRD (end stage renal disease): Problem details: Uremic ; Hypervolemic Has an AVF; Had HD yesterday Venous needle infiltrated on HD this AM Will dialyze for 3 days in a row( ordered) Iron studies AM; Will start Procrit after reviewing Iron studies PTH and VItamin D levels ordered along with phosphorus levels outpt HD spot requested in [facility] unit( details pending); Will follow up Status: Acute (2) COPD (chronic obstructive pulmonary disease): Status: Acute (3) Morbid obesity: Status: Acute (4) Chronic diastolic (congestive) heart failure: Status: Acute (5) CKD (chronic kidney disease), stage V: Status: Acute (6) Acute dehydration: Status: Acute (7) Acute UTI: Status: Acute (8) Diabetes type 2, uncontrolled: Problem details: 20 min reviewing chart evaluating patient and documenting Status: Acute Assessment and Plan: 75 yo F with a PMH of CKD V who presented with confusion and anorexia. Found to have worsening renal failure and uremia and admitted for: 1. CKD stage 5, now progressed to ESRD Plan is for continued hemodialysis for 3 days in a row, day 2 on hemodialysis today, being followed by Nephrology they will arrange for outpatient hemodialysis. Patient remains volume overloaded, further workup as per Nephrology 2. Metabolic encephalopathy from Uremia, improving patient more awake alert 3. DM Blood sugars in low range this a.m., on Lantus 27 units + insulin sliding scale, will reduce dose of Lantus to 22 units DM diet 4. COPD not in exacerbation continue PRN inhalers 5. Morbid obesity weight loss encouraged, contributing to diabetes 6. UTI on empiric rocephin since c&s mixed bacterial liana will discontinue IV antibiotics 7. Anemia likely anemia of chronic disease, case discussed with Dr. Ocampo he will start Procrit after checking iron profile Full Code DVT pptx, subcut. heparin
[2020-07-08 16:42] LABS: Glucose, Whole Blood 132 mg/dL (60-115)
[2020-07-08 20:42] LABS: Glucose, Whole Blood 151 mg/dL (60-115)
[2020-07-08] MEDS: Sennosides 8.6 MG TABLET PO (21:24)
[2020-07-08] MEDS: Insulin Lispro 100 UNIT/ML 3 ML VIAL SUBCUT (21:24)
[2020-07-08] MEDS: Pravastatin Sodium 40 MG TABLET PO (21:24)
[2020-07-08] MEDS: Insulin Glargine,Hum.rec.anlog 100 UNIT/ML 10 ML VIAL 22 UNIT SUBCUT (21:24)
[2020-07-08] MEDS: LORazepam 0.5 MG TABLET PO (21:29)
[2020-07-09] VITALS (10 sets, daily range): BP systolic 123–175; BP diastolic 60–86; PULSE 79–96; RESP 16–22; TEMP 36.5–37.1; O2SAT 93–96
[2020-07-09] MEDS: 0.9 % Sodium Chloride Flush 3 ML SYRINGE IVFLUSH ×4 (00:08→20:54)
[2020-07-09] MEDS: LORazepam 0.5 MG TABLET PO ×2 (03:37→21:00)
[2020-07-09 06:52] LABS: Hematocrit 24.7 % (37-47); Hemoglobin 7.4 g/dl (12.0-16.0)
[2020-07-09 06:58] LABS: Iron 56 mcg/dL (30-160); Percent Iron Saturation 35 % (15-50); Phosphorus 7.1 mg/dL (2.7-4.5); Total Iron Binding Capacity 162 mcg/dL (228-428); Unsaturated Iron Binding 106 ug/dL
[2020-07-09 07:18] LABS: Ferritin 378 ng/mL (10-250)
[2020-07-09 07:27] LABS: Glucose, Whole Blood 99 mg/dL (60-115)
[2020-07-09] MEDS: oxyCODONE HCl Immed Release 5 MG TABLET PO (08:57)
--- NOTE | 2020-07-09 10:19 | P.PNNP_ITS ---
Subjective Subjective Date of Service: 07/09/20 Interval history: seen and examined on dialysis no complaints Physical Exam Vital Signs: Vital Signs: Last Vital Signs Temp 97.7 F 07/09/20 07:30 Pulse 96 07/09/20 07:30 Resp 22 H 07/09/20 07:30 BP 172/74 H 07/09/20 07:30 Pulse Ox 96 07/09/20 07:30 Body Mass Index 41.8 Const: Other: General - no acute distress, appears comfortable General: cooperative and alert HENMT: Mouth: moist mucous membranes Eyes: EOM: EOMs intact bilaterally Neck: Neck: Yes supple and Yes JVD Resp: Auscultation: diminished lung sounds Cardio: Rate: regular rate GI: Palpation (GI): Soft to palpation Neuro: Other: Asterixis + General: moves all extremities Objective Data Labs CBC & Chem 7: 07/09/20 05:56 07/08/20 10:16 Labs: Laboratory Results - last 24 hr 07/08/20 07/08/20 07/08/20 10:16 11:18 16:32 Hgb Hct Sodium 141 Potassium 4.5 Chloride 112 H Carbon Dioxide 15 L Anion Gap 19 BUN 75 H Creatinine 3.59 H Estim Creat Clear Calc 13.9 Estimated GFR 12 POC Glucose 76 132 H Phosphorus Iron TIBC % Saturation Unsat Iron Binding Ferritin 07/08/20 07/09/20 07/09/20 20:32 05:56 05:56 Hgb 7.4 L Hct 24.7 L Sodium Potassium Chloride Carbon Dioxide Anion Gap BUN Creatinine Estim Creat Clear Calc Estimated GFR POC Glucose 151 H Phosphorus 7.1 H Iron 56 TIBC 162 L % Saturation 35 Unsat Iron Binding 106 Ferritin 378 H 07/09/20 07:22 Hgb Hct Sodium Potassium Chloride Carbon Dioxide Anion Gap BUN Creatinine Estim Creat Clear Calc Estimated GFR POC Glucose 99 Phosphorus Iron TIBC % Saturation Unsat Iron Binding Ferritin Microbiology Microbiology Results: Microbiology 07/06/20 12:25 Blood - Venous Blood Culture - Preliminary No growth after 48 hours. 07/06/20 12:25 Blood - Venous Blood Culture - Preliminary No growth after 48 hours. 07/06/20 13:16 Urine [place] Urine Culture - Final Assessment & Plan Assessment and plan (1) ESRD (end stage renal disease): Status: Acute (2) Anemia: Status: Acute Assessment and Plan: HD today optimize volume status epogen per protocol (procrit [id number] units weekly) renal diet phosphate binders will arrange for outpatient dialysis at [place] unit Time Spent With Patient Time: Total time spent is greater than 50% in coordination of care (as documented) at patient's floor/unit and/or counseling patient:
--- NOTE | 2020-07-09 12:41 | HO.PM.IMPN ---
Subjective Subjective Date of Service: 07/09/20 Interval History: the patient was seen and evaluated this morning Laying in bed at the dialysis unit, reported to be mildly lethargic and sleepy but otherwise feels well Third day of dialysis today Denies any fever, chills or shortness of breath No reported other overnight events. Systemic review: No fever, chills or weakness No chest pain, palpitation No shortness of breath or coughing No abdominal pain, nausea or vomiting No urinary symptoms No any rash or wounds Physical Exam Vital Signs: Vital Signs: Last Vital Signs Temp 97.7 F 07/09/20 07:30 Pulse 96 07/09/20 07:30 Resp 22 H 07/09/20 07:30 BP 172/74 H 07/09/20 07:30 Pulse Ox 96 07/09/20 07:30 Body Mass Index 41.8 Const: Other: Constitutional : Alert, oriented, not in distress Neck : Normal inspection, Supple Cardiovascular : RRR, S1 S2, +1 bilateral lower extremity edema Respiratory : Fair bilateral air entry decreased at the bases, basal fine crackles, no wheezes or rhonchi Gastrointestinal: soft, lax, Normal bowel sounds, Non tender Skin : Warm/Dry, No rash Neurological : Alert & oriented x3, No focal deficit Objective Data Current Medications Generic Name Dose Route Start Last Admin Trade Name Hectorq PRN Reason Stop Dose Admin Acetaminophen 650 mg 07/06/20 19:36 07/08/20 16:58 Acetaminophen 325 Mg Tablet PO 650 mg Q6H PRN Administration Pain (Scale Score 1-3) Aspirin 81 mg 07/07/20 09:00 07/08/20 07:50 Aspirin Enteric Coated 81 Mg Tablet. PO 81 mg DAILY DAVE Administration Calcitriol 0.25 mcg 07/08/20 09:00 07/08/20 08:07 Calcitriol 0.25 Mcg Capsule PO 0.25 mcg MOWEFR@0900 DAVE Administration Docusate Sodium 100 mg 07/06/20 21:00 07/08/20 21:24 Docusate Sodium 100 Mg Capsule PO 100 mg BID DAVE Administration Famotidine 20 mg 07/07/20 09:00 07/08/20 08:07 Famotidine 20 Mg Tablet PO 20 mg DAILY DAVE Administration Ferrous Sulfate 324 mg 07/07/20 09:00 07/08/20 08:07 Ferrous Sulfate 324 Mg Tablet. PO 324 mg DAILY DAVE Administration Gabapentin 300 mg 07/06/20 21:00 07/08/20 21:24 Gabapentin 300 Mg Capsule PO 300 mg BID DAVE Administration Heparin Sodium (Porcine) 5,000 unit 07/06/20 20:00 07/09/20 09:03 Heparin Sodium,Porcine 5,000 Unit/Ml Vial SUBCUT Not Given Q12H DAVE Hydralazine HCl 100 mg 07/06/20 21:00 07/08/20 21:24 Hydralazine Hcl 50 Mg Tablet PO 100 mg BID DAVE Administration Protocol Insulin Glargine 22 unit 07/08/20 21:00 07/08/20 21:24 Insulin Glargine,Hum.Rec.Anlog 100 Unit/Ml 10 Ml Vial SUBCUT 22 unit BEDTIME DAVE Administration Insulin Human Lispro 0 unit 07/06/20 19:30 07/09/20 07:28 Insulin Lispro 100 Unit/Ml 3 Ml Vial SUBCUT Not Given QIDACHS [facility]END[facility] TO [facility] Protocol Lorazepam 0.5 mg 07/06/20 19:30 07/09/20 03:37 Lorazepam 0.5 Mg Tablet PO 0.5 mg BID PRN Administration anxiety Ondansetron HCl 4 mg 07/08/20 11:30 07/08/20 21:23 Ondansetron Hcl 4 Mg/2 Ml Vial IVPUSH 4 mg Q8H PRN Administration Nausea Oxycodone HCl 5 mg 07/06/20 19:30 07/09/20 08:57 Oxycodone Hcl Immed Release 5 Mg Tablet PO 5 mg Q12H PRN Administration pain Pharmacy Consult 1 each 07/06/20 11:57 Consult Rx Perform Med Rec MISCELLANE ONCE PRN Consult order Pravastatin Sodium 40 mg 07/06/20 21:00 07/08/20 21:24 Pravastatin Sodium 40 Mg Tablet PO 40 mg BEDTIME DAVE Administration Senna 8.6 mg 07/06/20 21:00 07/08/20 21:24 Sennosides 8.6 Mg Tablet PO 8.6 mg BEDTIME DAVE Administration Sodium Chloride 3 ml 07/07/20 00:00 07/09/20 08:46 0.9 % Sodium Chloride Flush 3 Ml Syringe IVFLUSH 3 ml QSHIFT [facility] Administration Vitamin D 50 mcg 07/07/20 09:00 07/08/20 08:07 Cholecalciferol (Vitamin D3) 25 Mcg Tablet PO 50 mcg DAILY DAVE Administration Labs CBC & Chem 7: 07/09/20 05:56 07/08/20 10:16 Microbiology Microbiology Results: Microbiology 07/06/20 12:25 Blood - Venous Blood Culture - Preliminary No growth after 48 hours. 07/06/20 12:25 Blood - Venous Blood Culture - Preliminary No growth after 48 hours. 07/06/20 13:16 Urine [place] Urine Culture - Final Assessment and Plan (1) ESRD (end stage renal disease): Status: Acute (2) COPD (chronic obstructive pulmonary disease): Status: Acute (3) Morbid obesity: Status: Acute (4) Chronic diastolic (congestive) heart failure: Status: Acute (5) CKD (chronic kidney disease), stage V: Status: Acute (6) Acute dehydration: Status: Acute (7) Acute UTI: Status: Acute (8) Diabetes type 2, uncontrolled: Status: Acute Assessment and Plan: 75 yo F with a PMH of CKD V who presented with confusion and anorexia. Found to have worsening renal failure and uremia and admitted for: 1. ESRD starting dialysis Fluid overload Patient remains volume overloaded, on dialysis today Day 3 of 3 hemodialysis followed by Nephrology they will arrange for outpatient hemodialysis on who looks enter 2. Metabolic encephalopathy from Uremia, improving patient more awake alert to repeat blood work tomorrow 3. DM Blood sugars in low range this a.m., on Lantus 27 units + insulin sliding scale, will reduce dose of Lantus to 22 units DM diet 4. COPD not in exacerbation continue PRN inhalers 5. Morbid obesity weight loss encouraged, contributing to diabetes 6. UTI on empiric rocephin since c&s mixed bacterial liana will discontinue IV antibiotics 7. Acute on chronic anemia Hemoglobin of 7.4 this morning, history of COPD next [place] to transfuse a unit of blood Continue Procrit Full Code DVT pptx, subcut. heparin
[2020-07-09 13:41] LABS: Glucose, Whole Blood 72 mg/dL (60-115)
[2020-07-09] MEDS: Acetaminophen 325 MG TABLET 650 MG PO (13:43)
[2020-07-09] MEDS: hydrALAZINE HCl 50 MG TABLET 100 MG PO ×2 (13:44→20:46)
[2020-07-09] MEDS: Gabapentin 300 MG CAPSULE PO ×2 (13:44→20:46)
[2020-07-09] MEDS: Docusate Sodium 100 MG CAPSULE PO (13:45)
[2020-07-09] MEDS: Ferrous Sulfate 324 MG TABLET.DR PO (13:45)
[2020-07-09] MEDS: Famotidine 20 MG TABLET PO (13:45)
[2020-07-09] MEDS: Cholecalciferol (Vitamin D3) 25 MCG TABLET 50 MCG PO (13:45)
[2020-07-09] MEDS: Aspirin Enteric Coated 81 MG TABLET.DR PO (13:45)
[2020-07-09 16:40] LABS: Glucose, Whole Blood 111 mg/dL (60-115)
[2020-07-09 20:12] LABS: Glucose, Whole Blood 151 mg/dL (60-115)
[2020-07-09] MEDS: Sennosides 8.6 MG TABLET PO (20:46)
[2020-07-09] MEDS: Pravastatin Sodium 40 MG TABLET PO (20:46)
[2020-07-09] MEDS: Heparin Sodium,Porcine 5,000 UNIT/ML VIAL 5000 UNIT SUBCUT (20:47)
[2020-07-09] MEDS: Insulin Lispro 100 UNIT/ML 3 ML VIAL SUBCUT (20:47)
[2020-07-09] MEDS: Insulin Glargine,Hum.rec.anlog 100 UNIT/ML 10 ML VIAL 22 UNIT SUBCUT (20:48)
[2020-07-10] VITALS (10 sets, daily range): BP systolic 126–172; BP diastolic 59–78; PULSE 75–86; RESP 18–20; TEMP 36.6–37; O2SAT 92–98
[2020-07-10 07:11] LABS: Hemoglobin 7.9 g/dl (12.0-16.0); Mean Corpuscular HGB Conc 30.4 g/dl (31.0-35.0); Mean Corpuscular Hemoglobin 28.5 pg (27.0-33.0); Mean Corpuscular Volume 93.9 fL (80-98); Mean Platelet Volume 11.3 fL (9.4-12.3); Platelet Count 158 X10*3/uL (160-400); Red Blood Count 2.77 X10*6/uL (4.20-5.50); Red Cell Distribution Width 15.9 % (11.0-16.0); White Blood Count 8.6 X10*3/uL (4.8-10.8)
[2020-07-10 07:19] LABS: Glucose, Whole Blood 66 mg/dL (60-115)
[2020-07-10 07:32] LABS: Anion Gap 17 (12-20); Blood Urea Nitrogen 48 mg/dL (9-16); Calcium 7.6 mg/dL (8.4-10.2); Carbon Dioxide 18 mmol/L (22-29); Chloride 107 mmol/L (96-108); Creatinine Clr Calc Pharmacy 17.2; Estimated Glomerular Filt Rate 16; Glucose Random 67 mg/dL (60-115); Potassium 4.2 mmol/L (3.3-5.1); Sodium 138 mmol/L (135-145)
--- NOTE | 2020-07-10 09:08 | P.PNNP_ITS ---
Subjective Subjective Date of Service: 07/10/20 Interval history: seen and examined sitting out of bed had HD yesterday denies fever, chills no nausea no SOB or chest pain Physical Exam Vital Signs: Vital Signs: Last Vital Signs Temp 97.8 F 07/10/20 07:31 Pulse 80 07/10/20 07:31 Resp 18 07/10/20 07:31 BP 126/60 07/10/20 07:31 Pulse Ox 98 07/10/20 07:31 Body Mass Index 41.8 Const: Other: General - no acute distress, appears comfortable General: cooperative and alert HENMT: Mouth: moist mucous membranes Eyes: EOM: EOMs intact bilaterally Neck: Neck: Yes supple Resp: Auscultation: diminished lung sounds Cardio: Rate: regular rate GI: Palpation (GI): Soft to palpation Neuro: Other: no asterixis General: moves all extremities Objective Data Labs CBC & Chem 7: 07/10/20 05:52 07/10/20 05:52 Labs: Laboratory Results - last 24 hr 07/09/20 07/09/20 07/09/20 10:04 13:38 16:31 WBC RBC Hgb Hct MCV MCH MCHC RDW Plt Count MPV Absolute Nucleated RBC Nucleated RBC % (auto) Sodium Potassium Chloride Carbon Dioxide Anion Gap BUN Creatinine Estim Creat Clear Calc Estimated GFR POC Glucose 72 111 Random Glucose Calcium Blood Type O Positive Antibody Screen NEGATIVE Crossmatch See Detail 07/09/20 07/10/20 07/10/20 20:01 05:52 05:52 WBC 8.6 RBC 2.77 L Hgb 7.9 L Hct 26.0 L MCV 93.9 MCH 28.5 MCHC 30.4 L RDW 15.9 Plt Count 158 L MPV 11.3 Absolute Nucleated RBC 0.000 Nucleated RBC % (auto) 0.0 Sodium 138 Potassium 4.2 Chloride 107 Carbon Dioxide 18 L Anion Gap 17 BUN 48 H Creatinine 2.92 H Estim Creat Clear Calc 17.2 Estimated GFR 16 POC Glucose 151 H Random Glucose 67 Calcium 7.6 L Blood Type Antibody Screen Crossmatch 07/10/20 07:09 WBC RBC Hgb Hct MCV MCH MCHC RDW Plt Count MPV Absolute Nucleated RBC Nucleated RBC % (auto) Sodium Potassium Chloride Carbon Dioxide Anion Gap BUN Creatinine Estim Creat Clear Calc Estimated GFR POC Glucose 66 Random Glucose Calcium Blood Type Antibody Screen Crossmatch Microbiology Microbiology Results: Microbiology 07/06/20 12:25 Blood - Venous Blood Culture - Preliminary No growth after 48 hours. 07/06/20 12:25 Blood - Venous Blood Culture - Preliminary No growth after 48 hours. 07/06/20 13:16 Urine [place] Urine Culture - Final Assessment & Plan Assessment and plan (1) ESRD (end stage renal disease): Status: Acute (2) Anemia: Status: Acute Assessment and Plan: HD per schedule (had HD on Saturday) epogen per protocol (procrit 13232 units weekly) renal diet phosphate binders outpatient being arranged at dialysis at [place] unit Time Spent With Patient Time: Total time spent is greater than 50% in coordination of care (as documented) at patient's floor/unit and/or counseling patient:
[2020-07-10] MEDS: Heparin Sodium,Porcine 5,000 UNIT/ML VIAL 5000 UNIT SUBCUT (09:12)
[2020-07-10] MEDS: 0.9 % Sodium Chloride Flush 3 ML SYRINGE IVFLUSH ×3 (09:12→20:47)
[2020-07-10] MEDS: Ferrous Sulfate 324 MG TABLET.DR PO (09:14)
[2020-07-10] MEDS: Aspirin Enteric Coated 81 MG TABLET.DR PO (09:14)
[2020-07-10] MEDS: Docusate Sodium 100 MG CAPSULE PO ×2 (09:14→20:40)
[2020-07-10] MEDS: Cholecalciferol (Vitamin D3) 25 MCG TABLET 50 MCG PO (09:14)
[2020-07-10] MEDS: LORazepam 0.5 MG TABLET PO ×2 (09:14→20:41)
[2020-07-10] MEDS: oxyCODONE HCl Immed Release 5 MG TABLET PO (09:14)
[2020-07-10] MEDS: Gabapentin 300 MG CAPSULE PO ×2 (09:14→20:40)
[2020-07-10] MEDS: hydrALAZINE HCl 50 MG TABLET 100 MG PO ×2 (09:15→20:40)
[2020-07-10] MEDS: Famotidine 20 MG TABLET PO (09:15)
[2020-07-10 11:08] LABS: Glucose, Whole Blood 96 mg/dL (60-115)
--- NOTE | 2020-07-10 13:59 | HO.PM.IMPN ---
Subjective Subjective Date of Service: 07/10/20 Interval History: the patient was seen and evaluated this morning Laying in bed , feels comfortable overall with improvement in shortness of breath Reported hematuria in the [place]a catheter Denies any fever, chills or shortness of breath No reported other overnight events. Systemic review: No fever, chills or weakness No chest pain, palpitation No shortness of breath or coughing No abdominal pain, nausea or vomiting No urinary symptoms No any rash or wounds Physical Exam Vital Signs: Vital Signs: Last Vital Signs Temp 98.0 F 07/10/20 11:25 Pulse 75 07/10/20 11:25 Resp 18 07/10/20 11:25 BP 132/78 07/10/20 11:25 Pulse Ox 94 07/10/20 11:25 Body Mass Index 41.8 Const: Other: Constitutional : Alert, oriented, not in distress Neck : Normal inspection, Supple Cardiovascular : RRR, S1 S2, trace bilateral lower extremity edema Respiratory : Fair bilateral air entry, basal fine crackles improved, no wheezes or rhonchi Gastrointestinal: soft, lax, Normal bowel sounds, Non tender Skin : Warm/Dry, No rash Neurological : Alert & oriented x3, No focal deficit Objective Data Current Medications Generic Name Dose Route Start Last Admin Trade Name Freq PRN Reason Stop Dose Admin Acetaminophen 650 mg 07/06/20 19:36 07/09/20 13:43 Acetaminophen 325 Mg Tablet PO 650 mg Q6H PRN Administration Pain (Scale Score 1-3) Calcitriol 0.25 mcg 07/08/20 09:00 07/08/20 08:07 Calcitriol 0.25 Mcg Capsule PO 0.25 mcg MOWEFR@0900 DAVE Administration Docusate Sodium 100 mg 07/06/20 21:00 07/10/20 09:14 Docusate Sodium 100 Mg Capsule PO 100 mg BID DAVE Administration Famotidine 20 mg 07/07/20 09:00 07/10/20 09:15 Famotidine 20 Mg Tablet PO 20 mg DAILY DAVE Administration Ferrous Sulfate 324 mg 07/07/20 09:00 07/10/20 09:14 Ferrous Sulfate 324 Mg Tablet. PO 324 mg DAILY DAVE Administration Gabapentin 300 mg 07/06/20 21:00 07/10/20 09:14 Gabapentin 300 Mg Capsule PO 300 mg BID DAVE Administration Hydralazine HCl 100 mg 07/06/20 21:00 07/10/20 09:15 Hydralazine Hcl 50 Mg Tablet PO 100 mg BID DAVE Administration Protocol Insulin Glargine 22 unit 07/08/20 21:00 07/09/20 20:48 Insulin Glargine,Hum.Rec.Anlog 100 Unit/Ml 10 Ml Vial SUBCUT 22 unit BEDTIME DAVE Administration Insulin Human Lispro 0 unit 07/06/20 19:30 07/10/20 11:11 Insulin Lispro 100 Unit/Ml 3 Ml Vial SUBCUT Not Given QIDACHS [facility] Protocol Lorazepam 0.5 mg 07/06/20 19:30 07/10/20 09:14 Lorazepam 0.5 Mg Tablet PO 0.5 mg BID PRN Administration anxiety Ondansetron HCl 4 mg 07/08/20 11:30 07/08/20 21:23 Ondansetron Hcl 4 Mg/2 Ml Vial IVPUSH 4 mg Q8H PRN Administration Nausea Oxycodone HCl 5 mg 07/06/20 19:30 07/10/20 09:14 Oxycodone Hcl Immed Release 5 Mg Tablet PO 5 mg Q12H PRN Administration pain Pharmacy Consult 1 each 07/06/20 11:57 Consult Rx Perform Med Rec MISCELLANE ONCE PRN Consult order Pravastatin Sodium 40 mg 07/06/20 21:00 07/09/20 20:46 Pravastatin Sodium 40 Mg Tablet PO 40 mg BEDTIME DAVE Administration Senna 8.6 mg 07/06/20 21:00 07/09/20 20:46 Sennosides 8.6 Mg Tablet PO 8.6 mg BEDTIME DAVE Administration Sodium Chloride 3 ml 07/07/20 00:00 07/10/20 09:12 0.9 % Sodium Chloride Flush 3 Ml Syringe IVFLUSH 3 ml QSHIFT [facility] Administration Vitamin D 50 mcg 07/07/20 09:00 07/10/20 09:14 Cholecalciferol (Vitamin D3) 25 Mcg Tablet PO 50 mcg DAILY [facility] Administration Labs CBC & Chem 7: 07/10/20 05:52 07/10/20 05:52 Microbiology Microbiology Results: Microbiology 07/06/20 12:25 Blood - Venous Blood Culture - Preliminary No growth after 48 hours. 07/06/20 12:25 Blood - Venous Blood Culture - Preliminary No growth after 48 hours. 07/06/20 13:16 Urine [place] Urine Culture - Final Assessment and Plan (1) ESRD (end stage renal disease): Status: Acute (2) COPD (chronic obstructive pulmonary disease): Status: Acute (3) Morbid obesity: Status: Acute (4) Chronic diastolic (congestive) heart failure: Status: Acute (5) CKD (chronic kidney disease), stage V: Status: Acute (6) Acute dehydration: Status: Acute (7) Acute UTI: Status: Acute (8) Diabetes type 2, uncontrolled: Status: Acute Assessment and Plan: 75 yo F with a PMH of CKD V who presented with confusion and anorexia. Found to have worsening renal failure and uremia and admitted for: 1. ESRD starting dialysis Fluid overload Patient remains volume overloaded, on dialysis today Received 3 of 3 hemodialysis sessions followed by Nephrology they will arrange for outpatient hemodialysis on who looks enter 2. Metabolic encephalopathy from Uremia, improving patient more awake alert 3. Hematuria Secondary to injury was placing [place] catheter Hold aspirin and heparin Start CBI Consult Urology 4. Acute on chronic anemia Hemoglobin improved to 7.9 after 1 unit transfusion Continue Procrit , iron supplement 5. DM Blood sugars in low range reduce dose of Lantus to 22 units DM diet 6. COPD not in exacerbation continue PRN inhalers 7. Morbid obesity weight loss encouraged, contributing to diabetes DVT pptx SCDs
[2020-07-10 15:59] LABS: Glucose, Whole Blood 178 mg/dL (60-115)
[2020-07-10] MEDS: Insulin Lispro 100 UNIT/ML 3 ML VIAL SUBCUT ×2 (16:46→20:38)
--- NOTE | 2020-07-10 18:45 | PC.NURSE ---
PT HAD ORTEGA CATHETER WITH HEMATURIA, ORDER FOR CBI PLACED. MULTIPLE ATTEMPTS AT PLACING [address] WAY ORTEGA CATHETER, FIRST ATTEMPT 16FR, SECOND ATTEMPT 18FR BY NURSING AFFILIATE MANAGER AND MEETING RESISTANT WITH BOTH ATTEMPTS. CALL OUT MADE TO UROLOGY TO PLACE NEW ORTEGA CATHETER. CURRENTLY NO ORTEGA CATHETER IN PLACE. AWAITING CALL BACK FROM UROLOGY.
--- NOTE | 2020-07-10 20:05 | PC.NURSE ---
Addendum entered by Sylvia Ambrose RN 07/11/20 00:12: Pt noted to have incontinence, still blood tinged. Bladder scanned and 6mL was remaining. Purewick put in place. Dr. Reynaga aware, no new orders at this time. Original Note: Recieved report from day shift RN. Pt has order for CBI. Day shift RN stated her and the air conditioning supervisor attempted twice to place a douglas (16 then an 18 guage ) and met resistance both times. Day shift RN called urology service with no call back. This RN reached out to Dr. Reynaga who stated to put the CBI on HOLD for now. Dr. Reynaga stated to not place a douglas at this time and said females can pass much bigger clots than males, the urine will help dissolve any clots.'' Pt has not had a douglas in since 0500, so she will be due to void around 2300. Will periodically bladder scan and monitor for voids. Will contact Dr. Reynaga if pt does not void.
[2020-07-10 20:09] LABS: Glucose, Whole Blood 152 mg/dL (60-115)
[2020-07-10] MEDS: Insulin Glargine,Hum.rec.anlog 100 UNIT/ML 10 ML VIAL 22 UNIT SUBCUT (20:39)
[2020-07-10] MEDS: Sennosides 8.6 MG TABLET PO (20:40)
[2020-07-10] MEDS: Pravastatin Sodium 40 MG TABLET PO (20:40)
[2020-07-11] VITALS (9 sets, daily range): BP systolic 130–177; BP diastolic 42–76; PULSE 78–87; RESP 18; TEMP 36.6–36.8; O2SAT 91–96
[2020-07-11] MEDS: diphenhydrAMINE HCL 50 MG/ML VIAL 25 MG IVPUSH (02:59)
[2020-07-11 07:16] LABS: Hematocrit 25.3 % (37-47); Hemoglobin 7.8 g/dl (12.0-16.0); Mean Corpuscular HGB Conc 30.8 g/dl (31.0-35.0); Mean Corpuscular Hemoglobin 29.1 pg (27.0-33.0); Mean Corpuscular Volume 94.4 fL (80-98); Mean Platelet Volume 11.6 fL (9.4-12.3); Platelet Count 151 X10*3/uL (160-400); Red Blood Count 2.68 X10*6/uL (4.20-5.50); Red Cell Distribution Width 15.8 % (11.0-16.0); White Blood Count 7.6 X10*3/uL (4.8-10.8)
[2020-07-11 07:19] LABS: Glucose, Whole Blood 106 mg/dL (60-115)
[2020-07-11] MEDS: Docusate Sodium 100 MG CAPSULE PO ×2 (09:04→21:00)
[2020-07-11] MEDS: 0.9 % Sodium Chloride Flush 3 ML SYRINGE IVFLUSH ×3 (09:04→21:03)
[2020-07-11] MEDS: hydrALAZINE HCl 50 MG TABLET 100 MG PO ×2 (09:04→20:59)
[2020-07-11] MEDS: Gabapentin 300 MG CAPSULE PO ×2 (09:04→20:59)
[2020-07-11] MEDS: calcitrioL 0.25 MCG CAPSULE PO (09:05)
[2020-07-11] MEDS: Famotidine 20 MG TABLET PO (09:05)
[2020-07-11] MEDS: Ferrous Sulfate 324 MG TABLET.DR PO (09:05)
[2020-07-11] MEDS: Cholecalciferol (Vitamin D3) 25 MCG TABLET 50 MCG PO (09:05)
[2020-07-11 11:19] LABS: Glucose, Whole Blood 153 mg/dL (60-115)
--- NOTE | 2020-07-11 12:13 | MHC.CM.PN ---
per rounds dc likely for today pt will resume high risk ob sercveis and hvns
--- NOTE | 2020-07-11 14:28 | MHC.CLN ---
F/U PO INTAKE 75% AVG DIET RX: 1500DM-APPROPRIATE PT RECEIVING ROSA AND PROSOURCE TO PROMOTE WOUND HEALING SUPPLEMENTS PROVIDE 280KCALS, 35G PROTEIN (55% EST PROTEIN NEEDS) NOTED PT STARTING HD FOLLOWING
--- NOTE | 2020-07-11 14:51 | PC.NURSE ---
pt has old open area to left heel that is now is scabbed over. pink edges with no drainage. encouraged patient to keep off of bed when lying down. Pt OOB with assist to chair most of day. Enc cough and deep breath q1hour while awake. scaly lower legs christie with reddened venoustasis to LLE.
--- NOTE | 2020-07-11 16:16 | PC.NURSE ---
late entry: 10am. Dr Fraga up to see patient. concerned about CBI not being in and dark urine via pure wick. Bladder scanned pt at his request for 73ml. aware.
--- NOTE | 2020-07-11 16:17 | PC.NURSE ---
Dr. Fraga notified of no BUN/Creat drawn today with very little dark urine.
[2020-07-11 16:24] LABS: Glucose, Whole Blood 149 mg/dL (60-115)
--- NOTE | 2020-07-11 17:06 | P.PNNP_ITS ---
Subjective Subjective Date of Service: 07/11/20 Interval history: Seen AM. Feels improved. Due HD tomorrow. D/W grand daughter and hospitalist Physical Exam Vital Signs: Vital Signs: Last Vital Signs Temp 98.1 F 07/11/20 15:06 Pulse 86 07/11/20 15:06 Resp 18 07/11/20 15:06 BP 167/71 H 07/11/20 15:06 Pulse Ox 95 07/11/20 15:06 Body Mass Index 41.8 Const: General: No acute distress Neck: Neck: Yes supple Resp: Auscultation: diminished lung sounds Cardio: Rate: regular rate GI: Palpation (GI): Soft to palpation Neuro: General: moves all extremities Objective Data Labs CBC & Chem 7: 07/11/20 05:48 07/10/20 05:52 Labs: Laboratory Results - last 24 hr 07/10/20 07/11/20 07/11/20 20:02 05:48 07:08 WBC 7.6 RBC 2.68 L Hgb 7.8 L Hct 25.3 L MCV 94.4 MCH 29.1 MCHC 30.8 L RDW 15.8 Plt Count 151 L MPV 11.6 Absolute Nucleated RBC 0.000 Nucleated RBC % (auto) 0.0 POC Glucose 152 H 106 07/11/20 07/11/20 11:13 16:18 WBC RBC Hgb Hct MCV MCH MCHC RDW Plt Count MPV Absolute Nucleated RBC Nucleated RBC % (auto) POC Glucose 153 H 149 H Microbiology Microbiology Results: Microbiology 07/06/20 12:25 Blood - Venous Blood Culture - Final No growth after 5 days. 07/06/20 12:25 Blood - Venous Blood Culture - Final No growth after 5 days. 07/06/20 13:16 Urine [place] Urine Culture - Final Assessment & Plan Assessment and plan (1) ESRD (end stage renal disease): Problem details: Was Uremic & Hypervolemic at presentation which has improved Has an AVF;Next HD tomorrow outpt HD spot in [facility] TTS 2 nd shift Patient needs to be in outpatient [facility] unit @ D/C on TTS 11.15 AM ? D/C tomorrow after HD Status: Acute Time Spent With Patient Time: Total time spent is greater than 50% in coordination of care (as documented) at patient's floor/unit and/or counseling patient:
--- NOTE | 2020-07-11 17:42 | HO.PM.IMPN ---
Subjective Subjective Date of Service: 07/11/20 Interval History: the patient was seen and evaluated this morning Laying in bed , feels comfortable overall with improvement in shortness of breath A [place]a catheter was removed yesterday to place continuous bladder irrigation catheter but after multiple tries. No reported hematuria. A making much of urine. Denies any fever, chills or shortness of breath No reported other overnight events. Systemic review: No fever, chills or weakness No chest pain, palpitation No shortness of breath or coughing No abdominal pain, nausea or vomiting No urinary symptoms No any rash or wounds Physical Exam Vital Signs: Vital Signs: Last Vital Signs Temp 98.1 F 07/11/20 15:06 Pulse 86 07/11/20 15:06 Resp 18 07/11/20 15:06 BP 167/71 H 07/11/20 15:06 Pulse Ox 95 07/11/20 15:06 Body Mass Index 41.8 Const: Other: Constitutional : Alert, oriented, not in distress Neck : Normal inspection, Supple Cardiovascular : RRR, S1 S2, trace bilateral lower extremity edema Respiratory : Fair bilateral air entry, basal fine crackles improved, no wheezes or rhonchi Gastrointestinal: soft, lax, Normal bowel sounds, Non tender Skin : Warm/Dry, No rash Neurological : Alert & oriented x3, No focal deficit Objective Data Current Medications Generic Name Dose Route Start Last Admin Trade Name Freq PRN Reason Stop Dose Admin Acetaminophen 650 mg 07/06/20 19:36 07/09/20 13:43 Acetaminophen 325 Mg Tablet PO 650 mg Q6H PRN Administration Pain (Scale Score 1-3) Calcitriol 0.25 mcg 07/08/20 09:00 07/11/20 09:05 Calcitriol 0.25 Mcg Capsule PO 0.25 mcg MOWEFR@0900 DAVE Administration Docusate Sodium 100 mg 07/06/20 21:00 07/11/20 09:04 Docusate Sodium 100 Mg Capsule PO 100 mg BID DAVE Administration Famotidine 20 mg 07/07/20 09:00 07/11/20 09:05 Famotidine 20 Mg Tablet PO 20 mg DAILY DAVE Administration Ferrous Sulfate 324 mg 07/07/20 09:00 07/11/20 09:05 Ferrous Sulfate 324 Mg Tablet. PO 324 mg DAILY DAVE Administration Gabapentin 300 mg 07/06/20 21:00 07/11/20 09:04 Gabapentin 300 Mg Capsule PO 300 mg BID DAVE Administration Hydralazine HCl 100 mg 07/06/20 21:00 07/11/20 09:04 Hydralazine Hcl 50 Mg Tablet PO 100 mg BID DAVE Administration Protocol Insulin Glargine 22 unit 07/08/20 21:00 07/10/20 20:39 Insulin Glargine,Hum.Rec.Anlog 100 Unit/Ml 10 Ml Vial SUBCUT 22 unit BEDTIME DAVE Administration Insulin Human Lispro 0 unit 07/11/20 16:30 07/11/20 16:39 Insulin Lispro 100 Unit/Ml 3 Ml Vial SUBCUT Not Given QIDACHS [facility] Protocol Lorazepam 0.5 mg 07/06/20 19:30 07/10/20 20:41 Lorazepam 0.5 Mg Tablet PO 0.5 mg BID PRN Administration anxiety Ondansetron HCl 4 mg 07/08/20 11:30 07/08/20 21:23 Ondansetron Hcl 4 Mg/2 Ml Vial IVPUSH 4 mg Q8H PRN Administration Nausea Oxycodone HCl 5 mg 07/06/20 19:30 07/10/20 09:14 Oxycodone Hcl Immed Release 5 Mg Tablet PO 5 mg Q12H PRN Administration pain Pharmacy Consult 1 each 07/06/20 11:57 Consult Rx Perform Med Rec MISCELLANE ONCE PRN Consult order Pravastatin Sodium 40 mg 07/06/20 21:00 07/10/20 20:40 Pravastatin Sodium 40 Mg Tablet PO 40 mg BEDTIME DAVE Administration Senna 8.6 mg 07/06/20 21:00 07/10/20 20:40 Sennosides 8.6 Mg Tablet PO 8.6 mg BEDTIME DAVE Administration Sodium Chloride 3 ml 07/07/20 00:00 07/11/20 17:21 0.9 % Sodium Chloride Flush 3 Ml Syringe IVFLUSH 3 ml QSHIFT [facility] Administration Vitamin D 50 mcg 07/07/20 09:00 07/11/20 09:05 Cholecalciferol (Vitamin D3) 25 Mcg Tablet PO 50 mcg DAILY DAVE Administration Labs CBC & Chem 7: 07/11/20 05:48 07/10/20 05:52 Microbiology Microbiology Results: Microbiology 07/06/20 12:25 Blood - Venous Blood Culture - Final No growth after 5 days. 07/06/20 12:25 Blood - Venous Blood Culture - Final No growth after 5 days. 07/06/20 13:16 Urine [place] Urine Culture - Final Assessment and Plan (1) ESRD (end stage renal disease): Status: Acute (2) COPD (chronic obstructive pulmonary disease): Status: Acute (3) Morbid obesity: Status: Acute (4) Chronic diastolic (congestive) heart failure: Status: Acute (5) CKD (chronic kidney disease), stage V: Status: Acute (6) Acute dehydration: Status: Acute (7) Acute UTI: Status: Acute (8) Diabetes type 2, uncontrolled: Status: Acute Assessment and Plan: 75 yo F with a PMH of CKD V who presented with confusion and anorexia. Found to have worsening renal failure and uremia and admitted for: 1. ESRD starting dialysis Fluid overload, improved Patient remains volume overloaded, for dialysis tomorrow Received 3 of 3 hemodialysis sessions followed by Nephrology they will arrange for hemodialysis tomorrow 2. Metabolic encephalopathy from Uremia, improving patient more awake alert 3. Hematuria Secondary to injury was placing [place]a catheter, was removed and CBI was not placed for difficulty. Hold aspirin and heparin No blood in the urine noticed, bladder scan showed 100 cc Consult Urology 4. Acute on chronic anemia Hemoglobin improved to 7.8 after 1 unit transfusion Continue Procrit , iron supplement 5. DM Blood sugars in low range reduce dose of Lantus to 22 units DM diet 6. COPD not in exacerbation continue PRN inhalers 7. Morbid obesity weight loss encouraged, contributing to diabetes DVT pptx SCDs
[2020-07-11 20:34] LABS: Glucose, Whole Blood 163 mg/dL (60-115)
[2020-07-11] MEDS: LORazepam 0.5 MG TABLET PO (21:00)
[2020-07-11] MEDS: Sennosides 8.6 MG TABLET PO (21:00)
[2020-07-11] MEDS: Insulin Lispro 100 UNIT/ML 3 ML VIAL SUBCUT (21:00)
[2020-07-11] MEDS: Pravastatin Sodium 40 MG TABLET PO (21:00)
[2020-07-11] MEDS: Insulin Glargine,Hum.rec.anlog 100 UNIT/ML 10 ML VIAL 22 UNIT SUBCUT (21:01)
[2020-07-12 04:00] VITALS: BP 160/70; PULSE 83; RESP 18; TEMP 36.6; O2SAT 93
[2020-07-12 07:31] LABS: Glucose, Whole Blood 137 mg/dL (60-115)
[2020-07-12 07:39] VITALS: BP 190/81; PULSE 78
[2020-07-12] MEDS: hydrALAZINE HCl 50 MG TABLET 100 MG PO (07:39)
[2020-07-12] MEDS: Docusate Sodium 100 MG CAPSULE PO (07:40)
[2020-07-12] MEDS: Cholecalciferol (Vitamin D3) 25 MCG TABLET 50 MCG PO (07:40)
[2020-07-12] MEDS: Gabapentin 300 MG CAPSULE PO (07:41)
[2020-07-12] MEDS: Ferrous Sulfate 324 MG TABLET.DR PO (07:41)
[2020-07-12] MEDS: 0.9 % Sodium Chloride Flush 3 ML SYRINGE IVFLUSH (07:41)
[2020-07-12] MEDS: Famotidine 20 MG TABLET PO (07:49)
[2020-07-12 07:50] VITALS: BP 190/81; PULSE 78; RESP 20; TEMP 37.2; O2SAT 94
[2020-07-12 08:56] VITALS: BP 190/81; PULSE 78; O2SAT 94
--- NOTE | 2020-07-12 09:29 | P.PNNP_ITS ---
Subjective Subjective Date of Service: 07/12/20 Interval history: Seen AM. Feels improved. Due HD today Physical Exam Vital Signs: Vital Signs: Last Vital Signs Temp 99.0 F 07/12/20 07:50 Pulse 78 07/12/20 08:56 Resp 20 07/12/20 07:50 BP 190/81 H 07/12/20 08:56 Pulse Ox 94 07/12/20 08:56 Body Mass Index 41.8 Const: General: No no acute distress Orientation/consciousness: patient oriented x3 Neck: Neck: Yes supple Resp: Auscultation: diminished lung sounds Cardio: Heart sounds: no rubs GI: Palpation (GI): Soft to palpation Neuro: General: patient oriented x3 and moves all extremities Objective Data Labs CBC & Chem 7: 07/11/20 05:48 07/10/20 05:52 Labs: Laboratory Results - last 24 hr 07/11/20 07/11/20 07/11/20 11:13 16:18 20:25 POC Glucose 153 H 149 H 163 H 07/12/20 07:18 POC Glucose 137 H Microbiology Microbiology Results: Microbiology 07/06/20 12:25 Blood - Venous Blood Culture - Final No growth after 5 days. 07/06/20 12:25 Blood - Venous Blood Culture - Final No growth after 5 days. 07/06/20 13:16 Urine Olvera [place] Urine Culture - Final Assessment & Plan Assessment and plan (1) ESRD (end stage renal disease): Problem details: Was Uremic & Hypervolemic at presentation which has improved Has an AVF;Next HD today outpt HD spot in [facility] TTS 2 nd shift Patient needs to be in outpatient [facility] unit @ D/C on TTS 11.15 AM ? D/C today after HD Status: Acute Time Spent With Patient Time: Total time spent is greater than 50% in coordination of care (as documented) at patient's floor/unit and/or counseling patient:
[2020-07-12 11:25] LABS: Glucose, Whole Blood 192 mg/dL (60-115)
--- NOTE | 2020-07-12 11:55 | MHC.CM.PN ---
pt dcd today hvns notified called and spoke with pts son marcelo who will be here to transport pt about 3:30
[2020-07-12 13:44] VITALS: BP 149/51; PULSE 82; RESP 18; TEMP 37; O2SAT 95
--- NOTE | 2020-07-12 14:22 | PM.DS ---
DS: Providers Provider Date of Service: 07/12/20 Date of admission: 07/06/20 16:02 Primary care physician: Abel Llanos MD Consults: 07/06/20 19:30 Consult to Nephrology Routine Consulting Provider: Tevin Ocampo Reason for consultation: alejandro on ckd V 07/06/20 20:39 Consult to Wound Care Routine Consulting Provider: [facility] Wound Care Management Reason for consultation: DTI left heel Has provider been notified: Yes 07/10/20 10:56 Consult to Urology Routine Consulting Provider: Fabian Cuadra III Reason for consultation: Hematuria post Olvera placement for your eval. on CBI DS: Diagnosis Discharge Diagnosis (1) ESRD (end stage renal disease): Status: Acute (2) Morbid obesity: Status: Acute (3) Acute on chronic anemia: Status: Acute (4) Metabolic encephalopathy: Status: Acute (5) Fluid overload: Status: Acute (6) ALEJANDRO (acute kidney injury): Status: Acute DS: Medications Discharge Medications Home Medications: Home Medications Medication Instructions Recorded Confirmed Carlos Rao U-300 Insulin 34 unit SUBCUT BEDTIME 07/06/20 07/06/20 acetaminophen 500 mg PO Q6H PRN 07/06/20 07/06/20 aspirin 81 mg PO DAILY 07/06/20 07/06/20 calcitriol 0.25 mcg PO MOWEFR@0900 07/06/20 07/06/20 cholecalciferol (vitamin D3) 50 mcg PO DAILY 07/06/20 07/06/20 [Vitamin D3] docusate sodium 100 mg PO BID 07/06/20 07/06/20 famotidine 20 mg PO DAILY 07/06/20 07/06/20 ferrous sulfate 325 mg PO DAILY 07/06/20 07/06/20 gabapentin 300 mg PO BID 07/06/20 07/06/20 hydralazine 100 mg PO BID 07/06/20 07/06/20 insulin lispro [Humalog KwikPen See Protocol SUBCUT TID 07/06/20 07/06/20 Insulin] lovastatin 40 mg PO BEDTIME 07/06/20 07/06/20 sennosides [Senna Lax] 8.6 mg PO BEDTIME 07/06/20 07/06/20 Previous Rx's Medication Instructions Recorded blood sugar diagnostic #10 ea 02/05/20 lorazepam 0.5 mg tablet 0.5 mg PO BID PRN #180 tab 02/17/20 pen needle, diabetic 32 gauge x #400 ea 02/17/20 pen needle, diabetic 32 gauge x #400 ea 04/19/20 oxycodone 5 mg tablet 5 mg PO Q6H PRN #120 tab 06/24/20 DS: Summary Hospital Course Hospital Course: Admission note HPI 75F with pmh of CKD V presented with lethargy. patient states that for the last week or so she has been having decreasing appetite and po intake. she feels nauseous and lethargic. she is chronically edematous and sob with no changes. she has been sleeping in a recliner for the last few years. patient denies chest pain, fever, chills, cough. in ED noted to have worsening bun/cr of 117/4.78. patient does have an AV fistula that was placed several years ago and follows with dr hopkins. she aslo had a positive UA with questionable dysuria symptoms. Hospital course The patient was admitted to the hospital for metabolic encephalopathy and fluid overload secondary to worsening kidney function acute kidney injury. Discussed with Nephrology and decision was made to start dialysis for 3 straight sessions done over the last few days P with good response as the patient mentation and fluid status improved. She was noted to have acute on chronic anemia with hemoglobin as low as 7 requiring 1 unit transfusion and starting the patient on iron supplement and procrit with fair response as hemoglobin remained around 8. She was noted to have hematuria after placement of a Olvera catheter. Olvera catheter removed to places CBI but nursing staff was not able to place it overnight. In the morning the patient was able to pass some urine and reported no further bleeding. She was monitored for another day in the hospital and bladder scan was done showing no retention. To be discharged home with VNA. To follow-up as outpatient dialysis center. Time Spent with Patient Time attestation: Total time spent providing and/or coordinating discharge services: Discharge coordination time: Greater than 30 minutes Physical Exam Vital Signs: Vital Signs: Last Vital Signs Temp 98.6 F 07/12/20 13:44 Pulse 82 07/12/20 13:44 Resp 18 07/12/20 13:44 BP 149/51 H 07/12/20 13:44 Pulse Ox 95 07/12/20 13:44 Body Mass Index 41.8 Const: Other: Constitutional : Alert, oriented, not in distress Neck : Normal inspection, Supple Cardiovascular : RRR, S1 S2, trace bilateral lower extremity edema Respiratory : Fair bilateral air entry, basal fine crackles improved, no wheezes or rhonchi Gastrointestinal: soft, lax, Normal bowel sounds, Non tender Skin : Warm/Dry, No rash Neurological : Alert & oriented x3, No focal deficit DS: Data Data Completed and Pending Labs on day of discharge: Laboratory Results - last 24 hr 07/11/20 07/11/20 07/12/20 16:18 20:25 07:18 POC Glucose 149 H 163 H 137 H 07/12/20 11:21 POC Glucose 192 H Discharge Plan Discharge Patient Disposition: Home Health Service Referrals: [facility] [Outside] Abel Llanos MD [Primary Care Provider] - Discharge Medications: Continued (DME) OneTouch Ultra Blue Test Strip Strip See Rx Instructions .ROUTE .MEDSUPPLY Qty: 10 RF: 8 lorazepam 0.5 mg tablet 0.5 mg PO BID PRN (Reason: anxiety) Qty: 180 RF: 5 (DME) pen needle, diabetic [BD Ayesha 2nd Gen Pen Needle] 32 gauge x 5/32 needle See Rx Instructions .MEDSUPPLY Qty: 400 RF: 4 (DME) pen needle, diabetic [BD Ayesha 2nd Gen Pen Needle] 32 gauge x 5/32 needle See Rx Instructions .MEDSUPPLY Qty: 400 RF: 4 oxycodone 5 mg tablet 5 mg PO Q6H PRN (Reason: pain) Qty: 120 RF: 0 sennosides [Senna Lax] 8.6 mg Tablet 8.6 mg PO BEDTIME RF: 0 aspirin 81 mg Tablet,Delayed Release (Dr/Ec) 81 mg PO DAILY RF: 0 acetaminophen 500 mg Tablet 500 mg PO Q6H PRN (Reason: Pain (Scale Score 1-3)) RF: 0 famotidine 20 mg Tablet 20 mg PO DAILY RF: 0 ferrous sulfate 325 mg (65 mg iron) Tablet 325 mg PO DAILY RF: 0 docusate sodium 100 mg Capsule 100 mg PO BID RF: 0 gabapentin 300 mg Capsule 300 mg PO BID RF: 0 hydralazine 50 mg Tablet 100 mg PO BID RF: 0 insulin lispro [Humalog KwikPen Insulin] 100 unit/mL Insulin Pen See Protocol unit SUBCUT TID RF: 0 cholecalciferol (vitamin D3) [Vitamin D3] 50 mcg (2,000 unit) Capsule 50 mcg PO DAILY RF: 0 Toujeo SoloStar U-300 Insulin 300 unit/mL (1.5 mL) Insulin Pen 34 unit SUBCUT BEDTIME RF: 0 lovastatin 40 mg tablet 40 mg PO BEDTIME RF: 0 calcitriol 0.25 mcg capsule 0.25 mcg PO MOWEFR@0900 RF: 0 Discontinued metolazone 2.5 mg Tablet 2.5 mg PO MOWEFR@0900 RF: 0 furosemide 80 mg Tablet 80 mg PO DAILY RF: 0 Discharge Orders: Discharge Order (Routine); Ordered 07/12/20 Ordered By: Chay Fraga Diet: advance to usual diet Activity on Discharge: As tolerated Stand Alone Forms: Patient Portal Discharge page Care Plan Goals: Read below Health Concerns: Read below Plan of Treatment: You have presented to the hospital with fluid overload and altered mentation secondary to worsening kidney function. You were started on dialysis for 3 sessions by Nephrology. Had a for session this morning as your outpatient dialysis has been set up. You received a unit of blood for low blood level and started on iron supplement. To develop bloody urine after placement of Olvera which seems to resolve at the time of discharge. To follow up with Nephrology as outpatient and to continue dialysis as planned.
[2020-07-12 15:26] VITALS: BP 166/71; PULSE 86; RESP 18; TEMP 36.7; O2SAT 96
[2020-07-12] MEDS: Milk of Magnesia 30 ML ORAL.SUSP PO (16:13)
[2020-07-12 16:14] LABS: Glucose, Whole Blood 182 mg/dL (60-115)
[2020-07-12] MEDS: bisacodyL 10 MG SUPP.RECT PR (16:14)
[2020-07-12 17:37] LABS: Calcium (PTHI) 8.2 mg/dL (8.6-10.4); PTHI 167 pg/mL (14-64)
== END 2020-07-12 17:15 | disposition home health service (06) | DRG 689 ==
LOC: HO.ED 14:47 → HO.EDOVER 16:09 → HO.IMC 18:55
PROVIDERS: Family Medicine; Hospitalist; Internal Medicine Nephrology; Admitting Provider Internal Medicine; Emergency Provider Emergency Medicine; PCP Internal Medicine; Visit Provider Student in an Organized Health Care Education/Training Program
DX: N39.0 Urinary tract infection, site not specified (principal); G93.41 Metabolic encephalopathy; I13.2 Hypertensive heart and chronic kidney disease with heart failure and with stage 5 chronic kidney disease, or end stage renal disease; I50.32 Chronic diastolic (congestive) heart failure; N18.5 Chronic kidney disease, stage 5; Z94.0 Kidney transplant status; N17.9 Acute kidney failure, unspecified; Z68.41 Body mass index [BMI] 40.0-44.9, adult; E66.01 Morbid (severe) obesity due to excess calories; D63.1 Anemia in chronic kidney disease; J44.9 Chronic obstructive pulmonary disease, unspecified; E86.0 Dehydration; E11.22 Type 2 diabetes mellitus with diabetic chronic kidney disease; Z20.822 Contact with and (suspected) exposure to COVID-19; Z79.4 Long term (current) use of insulin; Z79.82 Long term (current) use of aspirin; Z79.899 Other long term (current) drug therapy
CPT/HCPCS: 36415; 71045; 80048; 80051; 80076; 81001; 81003; 82565; 82728; 82947; 83540; 83605; 83690; 83880; 83970; 84100; 84484; 84520; 85014; 85018; 85025; 85027; 86704; 86706; 86803; 86850; 86900; 86923; 87040; 87086; 87340; 87635; 90999; 93005; 96361; 96365; 97110; 97162; 99284; 99285; J0696; J1200; J2405; P9016

== ENCOUNTER 2020-07-13 11:18 | Emergency (ER) | payer MEDICARE, SELFPAY ==
[2020-07-13] VITALS (7 sets, daily range): BP systolic 132–168; BP diastolic 40–70; PULSE 78–89; RESP 15–18; TEMP 36.6–37.2; O2SAT 92–98; BMI 38.9
--- NOTE | ~2020-07-13 | XR_ITS ---
EXAMINATION: XR CHEST CLINICAL INFORMATION: Weakness COMPARISON: Previous chest x-ray June 2020 TECHNIQUE: Frontal view of the chest was obtained. FINDINGS: The cardiac and mediastinal contours are stable. The lungs are clear. There is no pleural effusion or pneumothorax. No acute bone abnormality is seen. XR/XR chest 1V IMPRESSION: No evidence for acute disease in the chest.
--- NOTE | 2020-07-13 11:42 | PC.NURSE ---
pt states she was just here, discharged yesterday. She states once hoe she has been unable to get out of her recliner and needs placement. She deies pain, had inc episode of stool at home prior to arrival in ER. Pt has dry patches to bilateral lower extremities with baseline redness and edema.
--- NOTE | 2020-07-13 12:13 | ECG_ITS ---
Test Reason : WEAKNESS Blood Pressure : / mmHG Vent. Rate : 085 BPM Atrial Rate : 085 BPM P-R Int : 194 ms QRS Dur : 136 ms QT Int : 400 ms P-R-T Axes : -18 -21 150 degrees QTc Int : 476 ms Normal sinus rhythm Left bundle branch block Abnormal ECG When compared with ECG of 06-JUL-2020 12:08, Premature supraventricular complexes are no longer Present Referred By: Xochilt Sommer Electronically Signed By:Barak Ugalde
--- NOTE | 2020-07-13 12:32 | ED.GENADULT ---
HPI - General Adult General Chief complaint: General Medical Stated complaint: general weakness Time Seen by Provider: 07/13/20 12:05 Source: patient Mode of arrival: ambulatory Limitations: no limitations History of Present Illness HPI narrative: 75-year-old female with a past medical history of end-stage renal disease on hemodialysis, anemia, , COPD, morbid obesity, congestive heart failure, diabetes coming from home with complaints of generalized weakness. Patient tells me she was discharged from this facility yesterday after being admitted .07/06-.07/12 for acute on ckd (dialyzed 07/06-07/08, 07/12), hematuria, anemia requiring prbc transfusion. Patient tells me since being home she has had difficulty with ambulating due to generalized weakness. Visiting nurses came this morning and patient tells me she was unable to ambulate and they recommended she come into the emergency department for further evaluation. She denies any chest pain, shortness of breath, abdominal pain, vomiting, diarrhea, fevers, chills. She tells me that she has lower extremity swelling but feels like it is much improved from previous. Last dialysis yesterday. Related Data Home Medications Medication Instructions Recorded Confirmed Nictimothy Rao U-300 Insulin 34 unit SUBCUT BEDTIME 07/06/20 07/13/20 acetaminophen 500 mg PO Q6H PRN 07/06/20 07/13/20 aspirin 81 mg PO DAILY 07/06/20 07/13/20 calcitriol 0.25 mcg PO MOWEFR@0900 07/06/20 07/13/20 cholecalciferol (vitamin D3) 50 mcg PO DAILY 07/06/20 07/13/20 [Vitamin D3] docusate sodium 100 mg PO BID 07/06/20 07/13/20 famotidine 20 mg PO DAILY 07/06/20 07/13/20 ferrous sulfate 325 mg PO DAILY 07/06/20 07/13/20 gabapentin 300 mg PO BID 07/06/20 07/13/20 hydralazine 100 mg PO BID 07/06/20 07/13/20 insulin lispro [Humalog KwikPen See Protocol SUBCUT TID 07/06/20 07/13/20 Insulin] lovastatin 40 mg PO BEDTIME 07/06/20 07/13/20 sennosides [Senna Lax] 8.6 mg PO BEDTIME 07/06/20 07/13/20 Previous Rx's Medication Instructions Recorded lorazepam 0.5 mg tablet 0.5 mg PO BID PRN #180 tab 02/17/20 oxycodone 5 mg tablet 5 mg PO Q6H PRN #120 tab 06/24/20 polyethylene glycol 3350 [Miralax] 17 g PO DAILY #30 ea 07/12/20 Allergies Allergy/AdvReac Type Severity Reaction Status Date / Time pregabalin Allergy Unknown feet Verified 01/22/20 11:25 swelling Review of Systems Review of Systems: Yes all other systems are reviewed and are negative Constitutional: Constitutional: Reports no additional constitutional complaints, Denies body ache(s), Denies chills, Denies fever(s), Denies headache(s) and Reports weakness Eyes: Eyes: Reports no additional eye complaints and Denies change in vision ENT: Reports system reviewed and no additional complaints, except as documented, Denies dizziness, Denies headache(s), Denies nasal congestion, Denies nasal discharge and Denies neck pain Cardiovascular: Cardiovascular: Reports no additional cardiovascular complaints, Denies chest pain, Denies leg edema and Denies dyspnea Respiratory: Respiratory: Reports no additional respiratory complaints, Denies cough and Denies dyspnea Gastrointestinal: Gastrointestinal: Reports no additional gastrointestinal complaints, Denies abdominal pain, Denies diarrhea, Denies nausea and Denies vomiting Genitourinary: Genitourinary: Reports no additional female genitourinary complaints and Denies urinary incontinence Musculoskeletal: Musculoskeletal: Reports no additional musculoskeletal complaints, Denies back pain, Denies arthralgias, Denies joint swelling, Denies neck pain, Denies numbness and Denies tingling Integumentary/Breasts: Skin/Breast: Reports system reviewed and no additional complaints, except as docu and Denies rash Neurologic: Reports system reviewed and no additional complaints, except as documented, Denies Abnormal speech present, Denies dizziness, Denies headache(s), Denies numbness, Denies tingling and Reports weakness PMFSH Past Medical History Attestation statement: The following information was validated with the patient. Source: old records reviewed and nursing notes reviewed Medical History Chronic diastolic (congestive) heart failure CKD (chronic kidney disease), stage V COPD (chronic obstructive pulmonary disease) Diabetes type 2, uncontrolled Morbid obesity Surgical History History of cystoscopy History of right cataract surgery History of tubal ligation Family History Family History Father Lung cancer Mother Hypertension Social History Social History Household Members: Children Housing: House Alcohol intake: never Smoking Status: Unknown if ever smoked Use of substances other than those prescribed or required for medical reasons: No Advance Directives: No Advance Directives Information Provided: No Advance Directives Date on File: 07/06/20 service: No Current occupational status: retired Physical Exam Vital Signs: Vital Signs: Last Vital Signs Temp 98.0 F 07/13/20 19:30 Pulse 87 07/13/20 19:30 Resp 16 07/13/20 19:30 BP 136/40 L 07/13/20 19:30 Pulse Ox 92 07/13/20 19:30 Body Mass Index 38.9 Const: General: cooperative, healthy appearing, comfortable and no acute distress Orientation/consciousness: patient oriented x3 Limitations: no limitations HENMT: Head: Yes normal to inspection Ears: hearing grossly normal bilaterally General nose exam: Normal external nose present Face and sinus: Yes normal facial exam Mouth: Normal oral and palatal mucosa present Throat: Yes posterior oropharynx normal Eyes: General: appearance normal, both eyes and all related structures Pupils: Equal, round and reactive pupils present Neck: Neck: Yes normal visual inspection Chest: Chest palpation & inspection: normal inspection of the chest Resp: Effort & Inspection: normal respiratory effort Auscultation: clear to auscultation bilaterally Cardio: Rate: regular rate Rhythm: regular rhythm Peripheral pulses: Peripheral pulses 2+ throughout GI: Inspection: Yes normal to inspection Palpation (GI): Soft to palpation and nontender Auscultation: normal bowel sounds Back/Spine/Pelvis: Thoracic/Lumbar Spine: thoracic and lumbar spine normal to inspection Skin: General skin exam: no rashes or lesions noted Neuro: General: patient oriented x3, no focal motor deficits and normal sensation to monofilament Cranial nerves: Yes Equal, round and reactive pupils present Cognition (Neuro): normal cognition Speech: No Abnormal speech present Gait exam (Neuro): Normal gait present Motor exam (neuro): 5/5 motor strength present throughout Extrem: General: Yes normal to inspection and Yes edema (Mild bilateral 1+ pitting) Course Course Course Narrative: 75-year-old female coming from home with generalized weakness with recent admission for acute kidney injury on CKD, anemia, hematuria. Will need labs, EKG, urine. Will likely need physical therapy evaluation and case management involvement for placement. 1330-Creatinine 4.03, BUN 56. K normalized. 07/10 2.92/48 after 3 days of dialysis here. Patient tells me she received dialysis yesterday. C/w with CKD. She tells me she is very little urine output which is normal for her. No dysuria, hematuria or frequency since being home. Will check PVR bladder scan. Anemia unchanged from previous. No active bleeding. Bladder can shows 100ml of urine. Due for dialysis tomorrow. PT consult, CM consult placed. 1500-PT recommends STR. Discussed with CM. Patient due for dialysis tomorrow at [facility]. Plan for placement in morning at [facility] and dialysis there. 1999-Medications reconciled. Plan for holding patient in ED overnight. Physican observation started pending placement. Medical Decision Making Lab Data Result diagrams: 07/13/20 12:43 07/13/20 12:43 Labs: Lab Results 07/13/20 07/13/20 07/13/20 Range/Units 12:43 12:43 12:43 WBC 7.4 (4.8-10.8) X10*3/uL RBC 2.77 L (4.20-5.50) X10*6/uL Hgb 7.9 L (12.0-16.0) g/dl Hct 26.3 L (37-47) % MCV 94.9 (80-98) fL MCH 28.5 (27.0-33.0) pg MCHC 30.0 L (31.0-35.0) g/dl RDW 15.6 (11.0-16.0) % Plt Count 167 (160-400) X10*3/uL MPV 10.9 (9.4-12.3) fL Immature Gran % (Auto) 0.8 H (0.0-0.4) % Neut % (Auto) 68.3 (45-73) % Lymph % (Auto) 20.7 (20-40) % [place] % (Auto) 7.4 (2-11) % Eos % (Auto) 2.4 (0-4) % Baso % (Auto) 0.4 (0-2) % Lymph # (Auto) 1.5 (1.2-4.9) X10*3/uL [place] # (Auto) 0.6 (0.1-1.2) X10*3/uL Eos # (Auto) 0.2 (0.0-0.4) X10*3/uL Baso # (Auto) 0.0 (0.0-0.2) X10*3/uL Abs Immat Gran (auto) 0.06 H (0.00-0.03) X10*3/uL Absolute Neuts (auto) 5.1 (2.0-8.3) X10*3/uL Absolute Nucleated RBC 0.000 (0.0-0.012) X10*3/uL Nucleated RBC % (auto) 0.0 (0.0-0.2) /100WBC Sodium 132 L (135-145) mmol/L Potassium 4.4 (3.3-5.1) mmol/L Chloride 101 (96-108) mmol/L Carbon Dioxide 20 L (22-29) mmol/L Anion Gap 15 (12-20) BUN 56 H (9-16) mg/dL Creatinine 4.03 H* (0.5-1.4) mg/dL Estim Creat Clear Calc 11.9 Estimated GFR 11 POC Glucose (60-115) mg/dL Random Glucose 262 H D (60-115) mg/dL Calcium 8.1 L D (8.4-10.2) mg/dL Phosphorus 5.2 H (2.7-4.5) mg/dL Magnesium 3.2 H (1.6-2.6) mg/dL Total Bilirubin 0.2 (0.0-1.0) mg/dL Direct Bilirubin < 0.2 (0.0-0.5) mg/dL AST 9 (5-31) U/L ALT 11 (0-31) U/L Alkaline Phosphatase 88 (39-117) U/L B-Natriuretic Peptide 130 H (<100) pg/mL Total Protein 6.4 L (6.5-8.0) g/dL Albumin 3.2 L (3.5-5.0) g/dL COVID-19 ([facility]) (Negative) COVID-19 Clin Com 07/13/20 07/13/20 Range/Units 15:18 19:06 WBC (4.8-10.8) X10*3/uL RBC (4.20-5.50) X10*6/uL Hgb (12.0-16.0) g/dl Hct (37-47) % MCV (80-98) fL MCH (27.0-33.0) pg MCHC (31.0-35.0) g/dl RDW (11.0-16.0) % Plt Count (160-400) X10*3/uL MPV (9.4-12.3) fL Immature Gran % (Auto) (0.0-0.4) % Neut % (Auto) (45-73) % Lymph % (Auto) (20-40) % Lagrange % (Auto) (2-11) % Eos % (Auto) (0-4) % Baso % (Auto) (0-2) % Lymph # (Auto) (1.2-4.9) X10*3/uL [place] # (Auto) (0.1-1.2) X10*3/uL Eos # (Auto) (0.0-0.4) X10*3/uL Baso # (Auto) (0.0-0.2) X10*3/uL Abs Immat Gran (auto) (0.00-0.03) X10*3/uL Absolute Neuts (auto) (2.0-8.3) X10*3/uL Absolute Nucleated RBC (0.0-0.012) X10*3/uL Nucleated RBC % (auto) (0.0-0.2) /100WBC Sodium (135-145) mmol/L Potassium (3.3-5.1) mmol/L Chloride (96-108) mmol/L Carbon Dioxide (22-29) mmol/L Anion Gap (12-20) BUN (9-16) mg/dL Creatinine (0.5-1.4) mg/dL Estim Creat Clear Calc Estimated GFR POC Glucose 179 H (60-115) mg/dL Random Glucose (60-115) mg/dL Calcium (8.4-10.2) mg/dL Phosphorus (2.7-4.5) mg/dL Magnesium (1.6-2.6) mg/dL Total Bilirubin (0.0-1.0) mg/dL Direct Bilirubin (0.0-0.5) mg/dL AST (5-31) U/L ALT (0-31) U/L Alkaline Phosphatase (39-117) U/L B-Natriuretic Peptide (<100) pg/mL Total Protein (6.5-8.0) g/dL Albumin (3.5-5.0) g/dL COVID-19 ([facility]) Negative (Negative) COVID-19 Clin Com See Note Imaging Data Chest x-ray: Attestation: I personally reviewed and interpreted this imaging study as follows: Radiologist's impression: [address] [id number] ReportSigned Patient: Carmella PetersMR#: [id number]: [id number]:[id number]/Sex: 75 / FADM Date: 07/13/20Loc: Epi Dr: Ordering Physician: RYLIE COLON NP Date of Service: 07/13/20 Procedure(s): XR chest 1V Accession Number(s): [id number] cc: RYLIE COLON NP~ EXAMINATION: XR CHEST CLINICAL INFORMATION: Weakness COMPARISON: Previous chest x-ray June 2020 TECHNIQUE: Frontal view of the chest was obtained. FINDINGS: The cardiac and mediastinal contours are stable. The lungs are clear. There is no pleural effusion or pneumothorax. No acute bone abnormality is seen. XR/XR chest 1V IMPRESSION: No evidence for acute disease in the chest. ECG Data Attestation: I personally reviewed and interpreted this ECG as follows: Interpretation: LBBB not new when compared to EKG 07/06/2020, normal rate 85, normal pr, normal qt Discharge Plan Discharge Clinical Impression: CKD (chronic kidney disease), stage V, Weakness Patient Disposition: Xfer SNF Prescriptions: No Action lorazepam 0.5 mg tablet 0.5 mg PO BID PRN (Reason: anxiety) Qty: 180 RF: 5 oxycodone 5 mg tablet 5 mg PO Q6H PRN (Reason: pain) Qty: 120 RF: 0 sennosides [Senna Lax] 8.6 mg Tablet 8.6 mg PO BEDTIME RF: 0 aspirin 81 mg Tablet,Delayed Release (Dr/Ec) 81 mg PO DAILY RF: 0 acetaminophen 500 mg Tablet 500 mg PO Q6H PRN (Reason: Pain (Scale Score 1-3)) RF: 0 famotidine 20 mg Tablet 20 mg PO DAILY RF: 0 ferrous sulfate 325 mg (65 mg iron) Tablet 325 mg PO DAILY RF: 0 docusate sodium 100 mg Capsule 100 mg PO BID RF: 0 gabapentin 300 mg Capsule 300 mg PO BID RF: 0 hydralazine 50 mg Tablet 100 mg PO BID RF: 0 insulin lispro [Humalog KwikPen Insulin] 100 unit/mL Insulin Pen See Protocol unit SUBCUT TID RF: 0 cholecalciferol (vitamin D3) [Vitamin D3] 50 mcg (2,000 unit) Capsule 50 mcg PO DAILY RF: 0 Toujeo SoloStar U-300 Insulin 300 unit/mL (1.5 mL) Insulin Pen 34 unit SUBCUT BEDTIME RF: 0 lovastatin 40 mg tablet 40 mg PO BEDTIME RF: 0 calcitriol 0.25 mcg capsule 0.25 mcg PO MOWEFR@0900 RF: 0 polyethylene glycol 3350 [Miralax] 17 gram powder in packet 17 g PO DAILY Qty: 30 RF: 1
[2020-07-13 12:48] LABS: MANUAL DIFF FLAG NO
[2020-07-13 12:58] LABS: Basophils Percent Auto 0.4 % (0-2); Eosinophils Absolute Auto 0.2 X10*3/uL (0.0-0.4); Eosinophils Percent Auto 2.4 % (0-4); Hematocrit 26.3 % (37-47); Hemoglobin 7.9 g/dl (12.0-16.0); Imm Gran Abs Auto 0.06 X10*3/uL (0.00-0.03); Imm Gran Pct Auto 0.8 % (0.0-0.4); Lymphocytes Absolute Auto 1.5 X10*3/uL (1.2-4.9); Lymphocytes Percent Auto 20.7 % (20-40); Mean Corpuscular Hemoglobin 28.5 pg (27.0-33.0); Mean Corpuscular Volume 94.9 fL (80-98); Mean Platelet Volume 10.9 fL (9.4-12.3); Monocytes Absolute Auto 0.6 X10*3/uL (0.1-1.2); Monocytes Percent Auto 7.4 % (2-11); Neutrophils Absolute Auto 5.1 X10*3/uL (2.0-8.3); Neutrophils Percent Auto 68.3 % (45-73); Platelet Count 167 X10*3/uL (160-400); Red Blood Count 2.77 X10*6/uL (4.20-5.50); Red Cell Distribution Width 15.6 % (11.0-16.0); White Blood Count 7.4 X10*3/uL (4.8-10.8)
[2020-07-13 13:24] LABS: B Type Natriuretic Peptide 130 pg/mL (<100)
[2020-07-13 13:29] LABS: Alanine Aminotransferase 11 U/L (0-31); Albumin Level 3.2 g/dL (3.5-5.0); Alkaline Phosphatase 88 U/L (39-117); Anion Gap 15 (12-20); Aspartate Amino Transferase 9 U/L (5-31); Bilirubin Direct < 0.2 mg/dL (0.0-0.5); Bilirubin Total 0.2 mg/dL (0.0-1.0); Blood Urea Nitrogen 56 mg/dL (9-16); Calcium 8.1 mg/dL (8.4-10.2); Carbon Dioxide 20 mmol/L (22-29); Chloride 101 mmol/L (96-108); Creatinine Clr Calc Pharmacy 11.9; Estimated Glomerular Filt Rate 11; Glucose Random 262 mg/dL (60-115); Magnesium 3.2 mg/dL (1.6-2.6); Potassium 4.4 mmol/L (3.3-5.1); Sodium 132 mmol/L (135-145); Total Protein 6.4 g/dL (6.5-8.0)
[2020-07-13 14:37] LABS: Phosphorus 5.2 mg/dL (2.7-4.5)
--- NOTE | 2020-07-13 15:36 | MHC.CM.ED ---
Received case management consult from Xochilt CASON. [place] [facility] [place] Short term rehab was recommended. Patient declined. Since being home, patient hasn't been able to ambulate. Patient's last HD treatment was 07/12. She will be on a Tu, Th and Sat schedule at [facility]. Patient agreeable to referral to [facility]. Referral made via [facility]. They aren't contracted with patient's insurance. However, if there are 3 facilities that deny, will give auth. [facility] and [facility] have not been able to offer a bed so far. Continue to monitor for d/c needs.
[2020-07-13 15:41] LABS: COVID-19 Test Negative (Negative)
--- NOTE | 2020-07-13 15:43 | PC.NURSE ---
pt has been moved from regular ER stretcher to bed. She was incontinent of small amount of urine, cleaned and repositioned. Pt does not attempt to help move, she needed reminders to reach for bed rail and roll her body to side though was able to do that. Pt has no skin integrity issues.
--- NOTE | 2020-07-13 18:46 | PC.NURSE ---
Pt has been shown how to use bed controls, also has been given a meal and tolerated well.
[2020-07-13 19:11] LABS: Glucose, Whole Blood 179 mg/dL (60-115)
[2020-07-13] MEDS: hydrALAZINE HCl 50 MG TABLET 100 MG PO (20:49)
[2020-07-13] MEDS: Sennosides 8.6 MG TABLET PO (20:50)
[2020-07-13] MEDS: Gabapentin 300 MG CAPSULE PO (20:50)
[2020-07-13] MEDS: LORazepam 0.5 MG TABLET PO (20:51)
[2020-07-13] MEDS: Docusate Sodium 100 MG CAPSULE PO (20:51)
[2020-07-13] MEDS: Insulin Glargine,Hum.rec.anlog 100 UNIT/ML 10 ML VIAL 27 UNIT SUBCUT (20:51)
[2020-07-13] MEDS: Pravastatin Sodium 40 MG TABLET PO (21:30)
[2020-07-14] MEDS: Acetaminophen 325 MG TABLET 650 MG PO ×3 (01:23→14:08)
[2020-07-14 06:00] VITALS: BP 137/45; PULSE 81; RESP 18; TEMP 37.4; O2SAT 96
[2020-07-14 08:31] LABS: Glucose, Whole Blood 222 mg/dL (60-115)
[2020-07-14] MEDS: Insulin Lispro 100 UNIT/ML 3 ML VIAL SUBCUT (08:37)
[2020-07-14 08:38] VITALS: BP 137/45; PULSE 80
[2020-07-14] MEDS: hydrALAZINE HCl 50 MG TABLET 100 MG PO (08:38)
[2020-07-14] MEDS: LORazepam 0.5 MG TABLET PO (08:39)
[2020-07-14] MEDS: Docusate Sodium 100 MG CAPSULE PO (08:39)
[2020-07-14] MEDS: oxyCODONE HCl Immed Release 5 MG TABLET PO ×2 (08:39→14:08)
[2020-07-14] MEDS: Cholecalciferol (Vitamin D3) 25 MCG TABLET 50 MCG PO (08:40)
[2020-07-14] MEDS: polyethylene glycoL 3350 17 GM POWD.PACK PO (08:40)
[2020-07-14] MEDS: Aspirin Enteric Coated 81 MG TABLET.DR PO (08:40)
[2020-07-14] MEDS: Ferrous Sulfate 324 MG TABLET.DR PO (08:40)
[2020-07-14] MEDS: Famotidine 20 MG TABLET PO (08:40)
[2020-07-14] MEDS: Gabapentin 300 MG CAPSULE PO (08:40)
--- NOTE | 2020-07-14 11:59 | MHC.CM.ED ---
Precert was submitted to Nathan Nichols by William Skelton. William Skelton is out of patient's network. However, needing HD, Nathan nichols could potentially be waiving the 20% co-pay. Continue to monitor for d/c needs.
--- NOTE | 2020-07-14 13:27 | PC.NURSE ---
PT UP TO CHAIR. AWAITING INSURANCE AUTH FOR STR
--- NOTE | 2020-07-14 13:55 | MHC.CM.ED ---
Insurance auth has been obtained by William Skelton. Patient can leave at 215pm. [facility] booked. Med nec on chart. Patient, Emily ANDERSON, and Ruby RN aware. Continue to monitor for d/c needs.
== END 2020-07-14 15:16 | disposition skilled nursing facility (03) ==
PROVIDERS: Nurse Practitioner Family; Emergency Provider Emergency Medicine; PCP Internal Medicine
DX: R53.1 Weakness (principal); E11.22 Type 2 diabetes mellitus with diabetic chronic kidney disease; I13.2 Hypertensive heart and chronic kidney disease with heart failure and with stage 5 chronic kidney disease, or end stage renal disease; I50.32 Chronic diastolic (congestive) heart failure; N18.6 End stage renal disease; Z99.2 Dependence on renal dialysis; Z20.822 Contact with and (suspected) exposure to COVID-19; D64.9 Anemia, unspecified; J44.9 Chronic obstructive pulmonary disease, unspecified; Z79.82 Long term (current) use of aspirin; Z79.02 Long term (current) use of antithrombotics/antiplatelets; Z79.899 Other long term (current) drug therapy; Z79.4 Long term (current) use of insulin
CPT/HCPCS: 36415; 51798; 71045; 80048; 80076; 82947; 83735; 83880; 84100; 85025; 87635; 93005; 96372; 97162; 99284; 99285

== ENCOUNTER 2020-07-15 06:36 | Outpatient (REF) | payer MEDICARE, SELFPAY ==
[2020-07-15 07:18] LABS: Hematocrit 24.3 % (37-47); Hemoglobin 7.4 g/dl (12.0-16.0); Mean Corpuscular HGB Conc 30.5 g/dl (31.0-35.0); Mean Corpuscular Hemoglobin 29.2 pg (27.0-33.0); Platelet Count 172 X10*3/uL (160-400); Red Blood Count 2.53 X10*6/uL (4.20-5.50); Red Cell Distribution Width 15.5 % (11.0-16.0); White Blood Count 6.6 X10*3/uL (4.8-10.8)
[2020-07-15 08:07] LABS: Alanine Aminotransferase 11 U/L (0-31); Alkaline Phosphatase 73 U/L (39-117); Anion Gap 17 (12-20); Aspartate Amino Transferase 9 U/L (5-31); Bilirubin Total 0.3 mg/dL (0.0-1.0); Blood Urea Nitrogen 76 mg/dL (9-16); Calcium 7.8 mg/dL (8.4-10.2); Carbon Dioxide 21 mmol/L (22-29); Chloride 105 mmol/L (96-108); Estimated Glomerular Filt Rate 8; Glucose Random 91 mg/dL (60-115); Potassium 5.9 mmol/L (3.3-5.1); Sodium 137 mmol/L (135-145); Total Protein 6.3 g/dL (6.5-8.0)
== END 2020-07-15 06:37 | disposition home or self-care (01) ==
LOC: HO.MMNH1L 06:36
PROVIDERS: Visit Provider Family Medicine
DX: E11.22 Type 2 diabetes mellitus with diabetic chronic kidney disease (principal); N18.6 End stage renal disease
CPT/HCPCS: 36415; 80053; 85027

== ENCOUNTER 2020-07-16 13:03 | Emergency (ER) | payer MEDICARE, SELFPAY ==
--- NOTE | ~2020-07-16 | XR_ITS ---
EXAMINATION: XR chest 1V CLINICAL INFORMATION: Chest pain COMPARISON: June 2020 TECHNIQUE: XR chest 1V Tubes and lines: None Lungs and Kathie: Mild interstitial lung marking and peribronchial cuffing chronic unchanged. No dense focal consolidation pneumonia. Prominent left kathie unchanged. Linear opacity at right lung base probably platelike atelectasis unchanged. Pleura: Normal. Costophrenic angles are sharp. No pneumothorax. Heart and mediastinum: The mediastinum is within normal limits.. Bones: Skeletal structures included are normal for patient's age. XR/XR chest 1V IMPRESSION: Chronic changes as above, no radiographic evidence of acute infiltrates or failure. Platelike atelectasis right lung base.
[2020-07-16 13:18] VITALS: BP 149/53; PULSE 79; RESP 18; TEMP 36.5; O2SAT 94; BMI 33.5
--- NOTE | 2020-07-16 13:37 | ECG_ITS ---
Test Reason : ABNORMAL LABS Blood Pressure : / mmHG Vent. Rate : 079 BPM Atrial Rate : 079 BPM P-R Int : 186 ms QRS Dur : 138 ms QT Int : 416 ms P-R-T Axes : -12 -13 149 degrees QTc Int : 477 ms Normal sinus rhythm Left bundle branch block Abnormal ECG When compared with ECG of 13-JUL-2020 13:25, No significant change was found Referred By: Patrick Garcia Electronically Signed By:Barak Ugalde
--- NOTE | 2020-07-16 13:43 | ED_ITS ---
HPI - General Adult General Chief complaint: Recheck/Abnormal Lab/Rx Stated complaint: unable to receive dialysis Time Seen by Provider: 07/16/20 13:24 History of Present Illness HPI narrative: 75 years old of female with chronic renal failure from the detention sent here by the dialysis unit because there were unable to access the fistula. Patient denies any complaining she has no shortness of breath no edema. Also there is no fever no vomiting. Onset (ago): hour(s) (One ) Severity: moderate Associated symptoms: denies other symptoms Related Data Home Medications Medication Instructions Recorded Confirmed Carlos ButtsSaeedleigh U-300 Insulin 34 unit SUBCUT BEDTIME 07/06/20 07/13/20 acetaminophen 500 mg PO Q6H PRN 07/06/20 07/13/20 aspirin 81 mg PO DAILY 07/06/20 07/13/20 calcitriol 0.25 mcg PO MOWEFR@0900 07/06/20 07/13/20 cholecalciferol (vitamin D3) 50 mcg PO DAILY 07/06/20 07/13/20 [Vitamin D3] docusate sodium 100 mg PO BID 07/06/20 07/13/20 famotidine 20 mg PO DAILY 07/06/20 07/13/20 ferrous sulfate 325 mg PO DAILY 07/06/20 07/13/20 gabapentin 300 mg PO BID 07/06/20 07/13/20 hydralazine 100 mg PO BID 07/06/20 07/13/20 insulin lispro [Humalog KwikPen See Protocol SUBCUT TID 07/06/20 07/13/20 Insulin] lovastatin 40 mg PO BEDTIME 07/06/20 07/13/20 sennosides [Senna Lax] 8.6 mg PO BEDTIME 07/06/20 07/13/20 Previous Rx's Medication Instructions Recorded lorazepam 0.5 mg tablet 0.5 mg PO BID PRN #180 tab 02/17/20 oxycodone 5 mg tablet 5 mg PO Q6H PRN #120 tab 06/24/20 polyethylene glycol 3350 [Miralax] 17 g PO DAILY #30 ea 07/12/20 lorazepam [Ativan] 0.5 mg PO BID PRN #30 tab 07/14/20 oxycodone 5 mg PO Q6H PRN #30 tab 07/14/20 Allergies Allergy/AdvReac Type Severity Reaction Status Date / Time pregabalin Allergy Unknown feet Verified 07/16/20 13:18 swelling Review of Systems Review of Systems: Yes all other systems are reviewed and are negative Cardiovascular: Cardiovascular: Reports no additional cardiovascular complaints Musculoskeletal: Musculoskeletal: Reports no additional musculoskeletal complaints Neurologic: Reports system reviewed and no additional complaints, except as documented [facility] Past Medical History Medical History Chronic diastolic (congestive) heart failure CKD (chronic kidney disease), stage V COPD (chronic obstructive pulmonary disease) Diabetes type 2, uncontrolled Morbid obesity Surgical History History of cystoscopy History of right cataract surgery History of tubal ligation Family History Family History Father Lung cancer Mother Hypertension Social History Social History Household Members: Children Housing: House Alcohol intake: never Smoking Status: Unknown if ever smoked Advance Directives: Yes Advance Directives on File: Yes Advance Directives Date on File: 07/14/20 service: No Current occupational status: retired Physical Exam Vital Signs: Vital Signs: Last Vital Signs Temp 97.6 F 07/16/20 14:23 Pulse 77 07/16/20 14:23 Resp 16 07/16/20 14:23 BP 132/27 L 07/16/20 14:23 Pulse Ox 94 07/16/20 14:23 Body Mass Index 33.5 Const: General: cooperative Orientation/consciousness: oriented to person, oriented to place, oriented to time and patient oriented x3 HENMT: Head: Yes normal to inspection and Yes No palpable skull fracture present Eyes: General: appearance normal, both eyes and all related structures Neck: Neck: Yes normal visual inspection and Yes full ROM Chest: Chest palpation & inspection: normal inspection of the chest Resp: Other: Examination the lungs showed normal lung sounds no rales no wheezing Effort & Inspection: symmetric chest movement Cardio: Jugular venous distension: no JVD Rate: regular rate GI: Inspection: Yes normal to inspection and Yes abdominal wall ecchymosis Skin: General skin exam: no rashes or lesions noted and elasticity normal Neuro: General: oriented to person, oriented to place, oriented to time and patient oriented x3 Course Reevaluation(s) Reevaluation #1: I spoke with the IR attending Dr Roach IR is not available to place the vascular cath today Time: 13:48 Reevaluation #2: I spoke with dr Aponte housekeeping aide he recommend checking potassium the potassium is okay she can be discharged to the nursing facility he will arrange a dialysis catheter as out patient Time: 13:49 Reevaluation #3: I had another conversation with Dr Aponte, he is aware of the potassium 5.6, he told me that they will arrange the outpatient dialysis catheter him self, he asked me to send the patient back to the detention. The patient remained asymptomatic she has no shortness of breath a chest x-ray shows no fluid overload Time: 15:25 Medical Decision Making MDM Narrative Medical decision making narrative: This is a 75 years old the asymptomatic sent here for placement of dialysis catheter. I will contact IR and also we speak with the housekeeping aide. At this time and she is not in CHF for his she appear comfortable Lab Data Result diagrams: 07/16/20 13:53 07/16/20 13:53 Labs: Lab Results 07/16/20 07/16/20 Range/Units 13:53 13:53 WBC 6.8 (4.8-10.8) X10*3/uL RBC 2.63 L (4.20-5.50) X10*6/uL Hgb 7.6 L (12.0-16.0) g/dl Hct 25.3 L (37-47) % MCV 96.2 (80-98) fL MCH 28.9 (27.0-33.0) pg MCHC 30.0 L (31.0-35.0) g/dl RDW 15.5 (11.0-16.0) % Plt Count 183 (160-400) X10*3/uL MPV 10.1 (9.4-12.3) fL Immature Gran % (Auto) 0.6 H (0.0-0.4) % Neut % (Auto) 66.9 (45-73) % Lymph % (Auto) 21.9 (20-40) % [place] % (Auto) 7.2 (2-11) % Eos % (Auto) 3.1 (0-4) % Baso % (Auto) 0.3 (0-2) % Lymph # (Auto) 1.5 (1.2-4.9) X10*3/uL [place] # (Auto) 0.5 (0.1-1.2) X10*3/uL Eos # (Auto) 0.2 (0.0-0.4) X10*3/uL Baso # (Auto) 0.0 (0.0-0.2) X10*3/uL Abs Immat Gran (auto) 0.04 H (0.00-0.03) X10*3/uL Absolute Neuts (auto) 4.5 (2.0-8.3) X10*3/uL Absolute Nucleated RBC 0.000 (0.0-0.012) X10*3/uL Nucleated RBC % (auto) 0.0 (0.0-0.2) /100WBC Sodium 138 (135-145) mmol/L Potassium 5.6 H (3.3-5.1) mmol/L Chloride 106 (96-108) mmol/L Carbon Dioxide 22 (22-29) mmol/L Anion Gap 16 (12-20) BUN 91 H* (9-16) mg/dL Creatinine 4.99 H* (0.5-1.4) mg/dL Estim Creat Clear Calc 10.8 Estimated GFR 9 Random Glucose 128 H D (60-115) mg/dL Calcium 8.0 L (8.4-10.2) mg/dL Total Bilirubin 0.4 (0.0-1.0) mg/dL AST 10 (5-31) U/L ALT 9 (0-31) U/L Alkaline Phosphatase 83 (39-117) U/L Total Protein 6.6 (6.5-8.0) g/dL Albumin 3.2 L (3.5-5.0) g/dL Imaging Data Chest x-ray: Radiologist's impression: Lungs and Kathie: Mild interstitial lung marking and peribronchial cuffing chronic unchanged. No dense focal consolidation pneumonia. Prominent left kathie unchanged. Linear opacity at right lung base probably platelike atelectasis unchanged. Pleura: Normal. Costophrenic angles are sharp. No pneumothorax. Heart and mediastinum: The mediastinum is within normal limits.. Bones: Skeletal structures included are normal for patient's age. XR/XR chest 1V IMPRESSION: Chronic changes as above, no radiographic evidence of acute infiltrates or failure. ECG Data Attestation: I personally reviewed and interpreted this ECG as follows: Pacemaker model: Normal sinus rhythm rate 79 left bundle branch block which is old no change Discharge Plan Discharge Clinical Impression: Renal failure, chronic Patient Disposition: er [facility] Instructions: End Stage Kidney Disease (ED) Additional Instructions: You have been seen today in the emergency room because they could not do dialysis ; we spoke with you housekeeping aide Dr Aponte he will arrange for the placement of dialysis catheter as outpatient Prescriptions: No Action lorazepam 0.5 mg tablet 0.5 mg PO BID PRN (Reason: anxiety) Qty: 180 RF: 5 oxycodone 5 mg tablet 5 mg PO Q6H PRN (Reason: pain) Qty: 120 RF: 0 lorazepam [Ativan] 0.5 mg tablet 0.5 mg PO BID PRN (Reason: anxiety) Qty: 30 RF: 0 oxycodone 5 mg tablet 5 mg PO Q6H PRN (Reason: pain) Qty: 30 RF: 0 sennosides [Senna Lax] 8.6 mg Tablet 8.6 mg PO BEDTIME RF: 0 aspirin 81 mg Tablet,Delayed Release (Dr/Ec) 81 mg PO DAILY RF: 0 acetaminophen 500 mg Tablet 500 mg PO Q6H PRN (Reason: Pain (Scale Score 1-3)) RF: 0 famotidine 20 mg Tablet 20 mg PO DAILY RF: 0 ferrous sulfate 325 mg (65 mg iron) Tablet 325 mg PO DAILY RF: 0 docusate sodium 100 mg Capsule 100 mg PO BID RF: 0 gabapentin 300 mg Capsule 300 mg PO BID RF: 0 hydralazine 50 mg Tablet 100 mg PO BID RF: 0 insulin lispro [Humalog KwikPen Insulin] 100 unit/mL Insulin Pen See Protocol unit SUBCUT TID RF: 0 cholecalciferol (vitamin D3) [Vitamin D3] 50 mcg (2,000 unit) Capsule 50 mcg PO DAILY RF: 0 Toujeo SoloStar U-300 Insulin 300 unit/mL (1.5 mL) Insulin Pen 34 unit SUBCUT BEDTIME RF: 0 lovastatin 40 mg tablet 40 mg PO BEDTIME RF: 0 calcitriol 0.25 mcg capsule 0.25 mcg PO MOWEFR@0900 RF: 0 polyethylene glycol 3350 [Miralax] 17 gram powder in packet 17 g PO DAILY Qty: 30 RF: 1
[2020-07-16 13:58] LABS: MANUAL DIFF FLAG NO
[2020-07-16 13:59] LABS: Basophils Percent Auto 0.3 % (0-2); Eosinophils Absolute Auto 0.2 X10*3/uL (0.0-0.4); Eosinophils Percent Auto 3.1 % (0-4); Hematocrit 25.3 % (37-47); Hemoglobin 7.6 g/dl (12.0-16.0); Imm Gran Abs Auto 0.04 X10*3/uL (0.00-0.03); Imm Gran Pct Auto 0.6 % (0.0-0.4); Lymphocytes Absolute Auto 1.5 X10*3/uL (1.2-4.9); Lymphocytes Percent Auto 21.9 % (20-40); Mean Corpuscular Hemoglobin 28.9 pg (27.0-33.0); Mean Corpuscular Volume 96.2 fL (80-98); Mean Platelet Volume 10.1 fL (9.4-12.3); Monocytes Absolute Auto 0.5 X10*3/uL (0.1-1.2); Monocytes Percent Auto 7.2 % (2-11); Neutrophils Absolute Auto 4.5 X10*3/uL (2.0-8.3); Neutrophils Percent Auto 66.9 % (45-73); Platelet Count 183 X10*3/uL (160-400); Red Blood Count 2.63 X10*6/uL (4.20-5.50); Red Cell Distribution Width 15.5 % (11.0-16.0); White Blood Count 6.8 X10*3/uL (4.8-10.8)
[2020-07-16 14:23] VITALS: BP 132/27; PULSE 77; RESP 16; TEMP 36.4; O2SAT 94
[2020-07-16 14:31] LABS: Alanine Aminotransferase 9 U/L (0-31); Albumin Level 3.2 g/dL (3.5-5.0); Alkaline Phosphatase 83 U/L (39-117); Anion Gap 16 (12-20); Aspartate Amino Transferase 10 U/L (5-31); Bilirubin Total 0.4 mg/dL (0.0-1.0); Blood Urea Nitrogen 91 mg/dL (9-16); Carbon Dioxide 22 mmol/L (22-29); Chloride 106 mmol/L (96-108); Creatinine Clr Calc Pharmacy 10.8; Estimated Glomerular Filt Rate 9; Glucose Random 128 mg/dL (60-115); Potassium 5.6 mmol/L (3.3-5.1); Sodium 138 mmol/L (135-145); Total Protein 6.6 g/dL (6.5-8.0)
[2020-07-16] MEDS: Sodium Polystyrene Sulfon/Sorb 15 GM/60 ML ORAL.SUSP 30 GM PO (15:52)
== END 2020-07-16 16:31 | disposition skilled nursing facility (03) ==
PROVIDERS: Emergency Provider Emergency Medicine; PCP Internal Medicine
DX: I13.2 Hypertensive heart and chronic kidney disease with heart failure and with stage 5 chronic kidney disease, or end stage renal disease (principal); E11.22 Type 2 diabetes mellitus with diabetic chronic kidney disease; N18.5 Chronic kidney disease, stage 5; I50.32 Chronic diastolic (congestive) heart failure; Z99.2 Dependence on renal dialysis; J44.9 Chronic obstructive pulmonary disease, unspecified; Z79.4 Long term (current) use of insulin; Z79.899 Other long term (current) drug therapy; Z79.82 Long term (current) use of aspirin
CPT/HCPCS: 36415; 71045; 80053; 85025; 93005; 99283; 99284

== ENCOUNTER 2020-07-18 00:48 | Outpatient (REF) | payer MEDICARE, SELFPAY ==
[2020-07-18 07:43] LABS: Mean Corpuscular HGB Conc 29.6 g/dl (31.0-35.0); Mean Corpuscular Hemoglobin 29.2 pg (27.0-33.0); Mean Corpuscular Volume 98.5 fL (80-98); Platelet Count 197 X10*3/uL (160-400); Red Blood Count 2.74 X10*6/uL (4.20-5.50); Red Cell Distribution Width 15.5 % (11.0-16.0); White Blood Count 6.6 X10*3/uL (4.8-10.8)
[2020-07-18 08:35] LABS: Anion Gap 21 (12-20); Blood Urea Nitrogen 100 mg/dL (9-16); Calcium 7.5 mg/dL (8.4-10.2); Carbon Dioxide 19 mmol/L (22-29); Chloride 106 mmol/L (96-108); Estimated Glomerular Filt Rate 9; Glucose Random 58 mg/dL (60-115); Potassium 4.8 mmol/L (3.3-5.1); Sodium 141 mmol/L (135-145)
== END 2020-07-18 00:49 | disposition home or self-care (01) ==
LOC: HO.MMNH1L 00:48
PROVIDERS: Visit Provider Family Medicine
DX: N18.6 End stage renal disease (principal); E11.22 Type 2 diabetes mellitus with diabetic chronic kidney disease
CPT/HCPCS: 36415; 80048; 85027

== ENCOUNTER 2020-07-25 05:00 | Outpatient (REF) | payer MEDICARE, SELFPAY ==
[2020-07-25 07:09] LABS: Hematocrit 22.3 % (37-47); Mean Corpuscular HGB Conc 29.6 g/dl (31.0-35.0); Mean Corpuscular Hemoglobin 29.2 pg (27.0-33.0); Mean Corpuscular Volume 98.7 fL (80-98); Mean Platelet Volume 10.9 fL (9.4-12.3); Platelet Count 169 X10*3/uL (160-400); Red Blood Count 2.26 X10*6/uL (4.20-5.50); Red Cell Distribution Width 15.5 % (11.0-16.0); White Blood Count 7.6 X10*3/uL (4.8-10.8)
[2020-07-25 07:53] LABS: Anion Gap 18 (12-20); Blood Urea Nitrogen 36 mg/dL (9-16); Calcium 7.7 mg/dL (8.4-10.2); Carbon Dioxide 24 mmol/L (22-29); Chloride 101 mmol/L (96-108); Estimated Glomerular Filt Rate 10; Glucose Random 95 mg/dL (60-115); Hemoglobin 6.6 g/dl (12.0-16.0); Potassium 4.6 mmol/L (3.3-5.1); Sodium 138 mmol/L (135-145)
== END 2020-07-25 05:01 | disposition home or self-care (01) ==
LOC: HO.MMNH1L 05:00
PROVIDERS: Visit Provider Family Medicine
DX: E11.22 Type 2 diabetes mellitus with diabetic chronic kidney disease (principal); N18.6 End stage renal disease
CPT/HCPCS: 36415; 80048; 85027

== ENCOUNTER 2020-07-27 07:11 | Outpatient (REF) | payer MEDICARE, SELFPAY ==
[2020-07-27 07:38] LABS: Mean Corpuscular HGB Conc 28.3 g/dl (31.0-35.0); Mean Corpuscular Hemoglobin 28.1 pg (27.0-33.0); Mean Corpuscular Volume 99.6 fL (80-98); Mean Platelet Volume 10.9 fL (9.4-12.3); Platelet Count 164 X10*3/uL (160-400); Red Blood Count 2.31 X10*6/uL (4.20-5.50); Red Cell Distribution Width 15.6 % (11.0-16.0); White Blood Count 6.5 X10*3/uL (4.8-10.8)
[2020-07-27 07:47] LABS: Hemoglobin 6.5 g/dl (12.0-16.0)
== END 2020-07-27 07:12 | disposition home or self-care (01) ==
LOC: HO.MMNH1L 07:11
PROVIDERS: Visit Provider Family Medicine
DX: D64.9 Anemia, unspecified (principal)
CPT/HCPCS: 36415; 85027

== ENCOUNTER 2020-07-27 12:08 | Emergency (ER) | payer MEDICARE, SELFPAY ==
[2020-07-27] VITALS (7 sets, daily range): BP systolic 81–147; BP diastolic 35–76; PULSE 67–89; RESP 15–18; TEMP 36.7–36.9; O2SAT 94–100; BMI 39.4
--- NOTE | 2020-07-27 12:53 | PC.NURSE ---
wet brief removed. good skin integrity
--- NOTE | 2020-07-27 13:14 | ED_ITS ---
HPI - General Adult General Chief complaint: Recheck/Abnormal Lab/Rx Stated complaint: ABN LABS PER SNF Time Seen by Provider: 07/27/20 12:57 Source: patient Mode of arrival: EMS Limitations: no limitations History of Present Illness HPI narrative: 75-year-old female who was referred to the emergency department from her [facility]pc facility for evaluation of anemia and possible transfusion. Patient has a history of end-stage renal disease and gets dialyzed on Saturday, and Saturday. The patient was found to have a low H&H on 07/25/2020 6.6 and 22.3. This morning, the patient had a repeat labs at 6:22 a.m. and her H&H was 6.5 and 23. The patient was referred to the emergency department for evaluation possible transfusion. The patient states that she does feel weak but she believes this is chronic. She denied chest pain, headache, lightheadedness, dizziness, abdominal pain, nausea, vomiting, dark tarry stools or bloody stools. The patient told me that she has been in a fpc facility for approximately 3 weeks for lower extremity weakness and for at ulcer on her left heel. Related Data Home Medications Medication Instructions Recorded Confirmed Carlos Rao U-300 Insulin 34 unit SUBCUT BEDTIME 07/06/20 07/13/20 acetaminophen 500 mg PO Q6H PRN 07/06/20 07/13/20 aspirin 81 mg PO DAILY 07/06/20 07/13/20 calcitriol 0.25 mcg PO MOWEFR@0900 07/06/20 07/13/20 cholecalciferol (vitamin D3) 50 mcg PO DAILY 07/06/20 07/13/20 [Vitamin D3] docusate sodium 100 mg PO BID 07/06/20 07/13/20 famotidine 20 mg PO DAILY 07/06/20 07/13/20 ferrous sulfate 325 mg PO DAILY 07/06/20 07/13/20 gabapentin 300 mg PO BID 07/06/20 07/13/20 hydralazine 100 mg PO BID 07/06/20 07/13/20 insulin lispro [Humalog KwikPen See Protocol SUBCUT TID 07/06/20 07/13/20 Insulin] lovastatin 40 mg PO BEDTIME 07/06/20 07/13/20 sennosides [Senna Lax] 8.6 mg PO BEDTIME 07/06/20 07/13/20 Previous Rx's Medication Instructions Recorded lorazepam 0.5 mg tablet 0.5 mg PO BID PRN #180 tab 02/17/20 oxycodone 5 mg tablet 5 mg PO Q6H PRN #120 tab 06/24/20 polyethylene glycol 3350 [Miralax] 17 g PO DAILY #30 ea 07/12/20 lorazepam [Ativan] 0.5 mg PO BID PRN #30 tab 07/14/20 oxycodone 5 mg PO Q6H PRN #30 tab 07/14/20 Allergies Allergy/AdvReac Type Severity Reaction Status Date / Time pregabalin Allergy Unknown feet Verified 07/27/20 12:45 swelling Review of Systems Review of Systems: Yes all other systems are reviewed and are negative [facility] Past Medical History Source: unable to obtain Medical History Chronic diastolic (congestive) heart failure CKD (chronic kidney disease), stage V COPD (chronic obstructive pulmonary disease) Diabetes type 2, uncontrolled Morbid obesity Surgical History History of cystoscopy History of right cataract surgery History of tubal ligation Family History Family History Father Lung cancer Mother Hypertension Social History Social History Household Members: Children Housing: House Alcohol intake: never Smoking Status: Former smoker Use of substances other than those prescribed or required for medical reasons: No Advance Directives: Yes Advance Directives on File: Yes Advance Directives Date on File: 07/14/20 service: No Current occupational status: retired Physical Exam Vital Signs: Vital Signs: Last Vital Signs Temp 98.0 F 07/27/20 15:56 Pulse 80 07/27/20 16:11 Resp 18 07/27/20 16:11 BP 106/76 07/27/20 16:11 Pulse Ox 94 07/27/20 15:42 Body Mass Index 39.4 Const: General: cooperative Nutritional Appearance: obese Orientation/consciousness: oriented to person and oriented to place Limitations: no limitations HENMT: Head: Yes normal to inspection, Yes normocephalic and Yes atraumatic Ears: external ears normal General nose exam: Normal external nose present Face and sinus: Yes normal facial exam Mouth: Normal oral and palatal mucosa present Throat: Yes posterior oropharynx normal Eyes: Periorbital: periorbital findings normal Eyelids: Yes eyelids normal Conjunctivae: conjunctivae normal Sclerae: sclerae normal Corneas: corneas normal Pupils: Equal, round and reactive pupils present Direct Ophthalmoscopy: normal light reflex Neck: Neck: Yes full ROM, Yes no lymphadenopathy, Yes no meningeal signs, Yes trachea midline and Yes supple Chest: Chest palpation & inspection: normal inspection of the chest and normal palpation of entire chest wall Resp: Effort & Inspection: normal respiratory effort and able to speak in complete sentences Auscultation: clear to auscultation bilaterally Cardio: Rate: regular rate Rhythm: regular rhythm Heart sounds: S1 normal heart sound present, S2 normal heart sound present and no murmurs GI: Inspection: Yes normal to inspection Palpation (GI): Soft to palpation, nontender, no guarding, not rigid and No hepatosplenomegaly present Rectal Exam - Female: visual inspection normal, normal sphincter tone and other (Soft brown stool, Hemoccult negative) : General: Yes no CVA tenderness Back/Spine/Pelvis: Back: no CVA tenderness Cervical Spine: normal cervical lordosis Thoracic/Lumbar Spine: thoracic and lumbar spine normal to inspection Skin: Lesions: no lesions Rashes: no rashes Wounds: no wounds Neuro: General: oriented to person, oriented to place and no meningeal signs Cranial nerves: Yes CN's II-XII intact bilaterally and Yes Equal, round and reactive pupils present Cognition (Neuro): normal cognition Motor exam (neuro): 5/5 motor strength present throughout Extrem: General: Yes normal to inspection and Yes full ROM Psych: Appearance: well kempt Mental Status: mental status grossly normal Speech and movement: Normal speech and movement present Affect: normal affect Attitude: cooperative Thought process: Normal thought process present Thought content: Normal thought content present Course Course Course Narrative: 75-year-old female with a history of end-stage renal disease and chronic anemia who was referred to the emergency department for evaluation of anemia and transfusion. The patient's hemoglobins over the past several months of ranged from 7.4-8.0. Today's hemoglobin was 6.5. The patient's p hysical examination was unremarkable in her rectal exam revealed brown stool which is Hemoccult negative. I did order a repeat CBC and transfusion of 1 unit of packed red blood cells. 1733: The patient's repeat CBC did reveal a low H&H of 6.8 in 23.8. The unit of packed red blood cells will be infused and the patient will be discharged back to her nursing facility. Medical Decision Making Lab Data Result diagrams: 07/27/20 13:59 Labs: Lab Results 07/27/20 07/27/20 Range/Units 13:59 14:21 WBC 7.4 (4.8-10.8) X10*3/uL RBC 2.37 L (4.20-5.50) X10*6/uL Hgb 6.8 L* (12.0-16.0) g/dl Hct 23.8 L (37-47) % MCV 100.4 H (80-98) fL MCH 28.7 (27.0-33.0) pg MCHC 28.6 L (31.0-35.0) g/dl RDW 15.7 (11.0-16.0) % Plt Count 164 (160-400) X10*3/uL MPV 10.8 (9.4-12.3) fL Immature Gran % (Auto) 1.6 H (0.0-0.4) % Neut % (Auto) 52.9 (45-73) % Lymph % (Auto) 33.0 (20-40) % [place] % (Auto) 9.9 (2-11) % Eos % (Auto) 1.9 (0-4) % Baso % (Auto) 0.7 (0-2) % Lymph # (Auto) 2.4 (1.2-4.9) X10*3/uL [place] # (Auto) 0.7 (0.1-1.2) X10*3/uL Eos # (Auto) 0.1 (0.0-0.4) X10*3/uL Baso # (Auto) 0.1 (0.0-0.2) X10*3/uL Abs Immat Gran (auto) 0.12 H (0.00-0.03) X10*3/uL Absolute Neuts (auto) 3.9 (2.0-8.3) X10*3/uL Absolute Nucleated RBC 0.000 (0.0-0.012) X10*3/uL Nucleated RBC % (auto) 0.0 (0.0-0.2) /100WBC Blood Type O Positive Antibody Screen NEGATIVE Crossmatch See Detail Discharge Plan Discharge Clinical Impression: Anemia Patient Disposition: Home, Self-Care Additional Instructions: You received 1 unit of packed red blood cells IV. Follow-up with your doctor in 2 days. Please return to the emergency department if your symptoms get worse or if you develop any symptoms that are concerning to you. Prescriptions: No Action lorazepam 0.5 mg tablet 0.5 mg PO BID PRN (Reason: anxiety) Qty: 180 RF: 5 oxycodone 5 mg tablet 5 mg PO Q6H PRN (Reason: pain) Qty: 120 RF: 0 lorazepam [Ativan] 0.5 mg tablet 0.5 mg PO BID PRN (Reason: anxiety) Qty: 30 RF: 0 oxycodone 5 mg tablet 5 mg PO Q6H PRN (Reason: pain) Qty: 30 RF: 0 sennosides [Senna Lax] 8.6 mg Tablet 8.6 mg PO BEDTIME RF: 0 aspirin 81 mg Tablet,Delayed Release (Dr/Ec) 81 mg PO DAILY RF: 0 acetaminophen 500 mg Tablet 500 mg PO Q6H PRN (Reason: Pain (Scale Score 1-3)) RF: 0 famotidine 20 mg Tablet 20 mg PO DAILY RF: 0 ferrous sulfate 325 mg (65 mg iron) Tablet 325 mg PO DAILY RF: 0 docusate sodium 100 mg Capsule 100 mg PO BID RF: 0 gabapentin 300 mg Capsule 300 mg PO BID RF: 0 hydralazine 50 mg Tablet 100 mg PO BID RF: 0 insulin lispro [Humalog KwikPen Insulin] 100 unit/mL Insulin Pen See Protocol unit SUBCUT TID RF: 0 cholecalciferol (vitamin D3) [Vitamin D3] 50 mcg (2,000 unit) Capsule 50 mcg PO DAILY RF: 0 Toujeo SoloStar U-300 Insulin 300 unit/mL (1.5 mL) Insulin Pen 34 unit SUBCUT BEDTIME RF: 0 lovastatin 40 mg tablet 40 mg PO BEDTIME RF: 0 calcitriol 0.25 mcg capsule 0.25 mcg PO MOWEFR@0900 RF: 0 polyethylene glycol 3350 [Miralax] 17 gram powder in packet 17 g PO DAILY Qty: 30 RF: 1
[2020-07-27 14:13] LABS: MANUAL DIFF FLAG NO
[2020-07-27 14:17] LABS: Basophils Absolute Auto 0.1 X10*3/uL (0.0-0.2); Basophils Percent Auto 0.7 % (0-2); Eosinophils Absolute Auto 0.1 X10*3/uL (0.0-0.4); Eosinophils Percent Auto 1.9 % (0-4); Hematocrit 23.8 % (37-47); Imm Gran Abs Auto 0.12 X10*3/uL (0.00-0.03); Imm Gran Pct Auto 1.6 % (0.0-0.4); Lymphocytes Absolute Auto 2.4 X10*3/uL (1.2-4.9); Mean Corpuscular HGB Conc 28.6 g/dl (31.0-35.0); Mean Corpuscular Hemoglobin 28.7 pg (27.0-33.0); Mean Corpuscular Volume 100.4 fL (80-98); Mean Platelet Volume 10.8 fL (9.4-12.3); Monocytes Absolute Auto 0.7 X10*3/uL (0.1-1.2); Monocytes Percent Auto 9.9 % (2-11); Neutrophils Absolute Auto 3.9 X10*3/uL (2.0-8.3); Neutrophils Percent Auto 52.9 % (45-73); Platelet Count 164 X10*3/uL (160-400); Red Blood Count 2.37 X10*6/uL (4.20-5.50); Red Cell Distribution Width 15.7 % (11.0-16.0); White Blood Count 7.4 X10*3/uL (4.8-10.8)
[2020-07-27 14:32] LABS: Hemoglobin 6.8 g/dl (12.0-16.0)
--- NOTE | 2020-07-27 15:41 | PC.NURSE ---
moved to recliner for lower back pain. reports improvement. requesting tylenol for pain.
[2020-07-27] MEDS: Acetaminophen 325 MG TABLET 650 MG PO (17:15)
--- NOTE | 2020-07-27 19:37 | PC.NURSE ---
rn to rn with mg at [facility]. Aware that patient is returning.
[2020-07-27 20:07] LABS: Glucose, Whole Blood 166 mg/dL (60-115)
== END 2020-07-27 21:00 | disposition home or self-care (01) ==
PROVIDERS: Emergency Provider Emergency Medicine Emergency Medical Services; PCP Internal Medicine
DX: D64.9 Anemia, unspecified (principal); E11.22 Type 2 diabetes mellitus with diabetic chronic kidney disease; I13.2 Hypertensive heart and chronic kidney disease with heart failure and with stage 5 chronic kidney disease, or end stage renal disease; N18.5 Chronic kidney disease, stage 5; I50.84 End stage heart failure; Z99.2 Dependence on renal dialysis; Z79.4 Long term (current) use of insulin; Z87.891 Personal history of nicotine dependence; Z79.82 Long term (current) use of aspirin; Z79.899 Other long term (current) drug therapy
CPT/HCPCS: 36415; 36430; 82947; 85025; 86850; 86900; 86923; 99284; 99285; P9016

== ENCOUNTER 2020-08-01 | Outpatient (REF) | payer MEDICARE, SELFPAY ==
[2020-08-01 08:22] LABS: Hematocrit 28.7 % (37-47); Hemoglobin 8.6 g/dl (12.0-16.0); Mean Platelet Volume 11.9 fL (9.4-12.3); Platelet Count 165 X10*3/uL (160-400); Red Blood Count 2.87 X10*6/uL (4.20-5.50); Red Cell Distribution Width 15.9 % (11.0-16.0); White Blood Count 7.9 X10*3/uL (4.8-10.8)
[2020-08-01 09:30] LABS: Anion Gap 21 (12-20); Blood Urea Nitrogen 41 mg/dL (9-16); Calcium 8.1 mg/dL (8.4-10.2); Carbon Dioxide 20 mmol/L (22-29); Chloride 105 mmol/L (96-108); Estimated Glomerular Filt Rate 9; Glucose Random 91 mg/dL (60-115); Potassium 4.9 mmol/L (3.3-5.1); Sodium 141 mmol/L (135-145)
== END 2020-08-01 00:01 | disposition home or self-care (01) ==
LOC: HO.MMNH1L
PROVIDERS: Visit Provider Family Medicine
DX: E11.22 Type 2 diabetes mellitus with diabetic chronic kidney disease (principal); N18.6 End stage renal disease
CPT/HCPCS: 36415; 80048; 85027

== ENCOUNTER 2020-08-08 06:42 | Outpatient (REF) | payer MEDICARE, SELFPAY ==
[2020-08-08 07:08] LABS: Hematocrit 28.3 % (37-47); Hemoglobin 8.3 g/dl (12.0-16.0); Mean Corpuscular HGB Conc 29.3 g/dl (31.0-35.0); Mean Corpuscular Hemoglobin 29.2 pg (27.0-33.0); Mean Corpuscular Volume 99.6 fL (80-98); Mean Platelet Volume 11.3 fL (9.4-12.3); Platelet Count 194 X10*3/uL (160-400); Red Blood Count 2.84 X10*6/uL (4.20-5.50); Red Cell Distribution Width 15.5 % (11.0-16.0); White Blood Count 6.5 X10*3/uL (4.8-10.8)
[2020-08-08 07:27] LABS: Anion Gap 20 (12-20); Blood Urea Nitrogen 32 mg/dL (9-16); Calcium 8.3 mg/dL (8.4-10.2); Carbon Dioxide 23 mmol/L (22-29); Chloride 100 mmol/L (96-108); Glucose Random 100 mg/dL (60-115); Potassium 4.8 mmol/L (3.3-5.1); Sodium 138 mmol/L (135-145)
[2020-08-08 08:04] LABS: Estimated Glomerular Filt Rate 9
== END 2020-08-08 06:43 | disposition home or self-care (01) ==
LOC: HO.MMNH1L 06:42
PROVIDERS: Visit Provider Family Medicine
DX: E11.22 Type 2 diabetes mellitus with diabetic chronic kidney disease (principal); N18.6 End stage renal disease
CPT/HCPCS: 36415; 80048; 85027

== ENCOUNTER 2020-08-10 16:37 | Outpatient (REF) | payer MEDICARE, SELFPAY ==
[2020-08-10 16:54] LABS: Glucose Urine UA NEG (NEG); Nitrite Urine NEG (NEG); Specific Gravity - Urine 1.025 (1.005-1.025); Urine Blood 2+ (NEG); Urine Ketones 5 MG/DL (NEG); Urine Protein 2+ MG/DL (NEG-TRACE)
[2020-08-10 16:55] LABS: Appearance Urine TURBID; Color Urine YELLOW; Leukocyte Esterase Urine 3+ (NEG)
[2020-08-10 16:59] LABS: WBC Urine TNTC /HPF (0-4)
[2020-08-10 17:00] LABS: Bacteria Urine 4+ /LPF; Squamous Epithelial Cell Urine 1+ /LPF
== END 2020-08-10 16:38 | disposition home or self-care (01) ==
LOC: HO.MMNH1L 16:37
PROVIDERS: Visit Provider Family Medicine
DX: E11.22 Type 2 diabetes mellitus with diabetic chronic kidney disease (principal); N18.6 End stage renal disease
CPT/HCPCS: 81001; 87086; 87088; 87186

== ENCOUNTER 2020-08-15 00:38 | Outpatient (REF) | payer MEDICARE, SELFPAY ==
[2020-08-15 07:45] LABS: Hematocrit 29.1 % (37-47); Hemoglobin 8.5 g/dl (12.0-16.0); Mean Corpuscular HGB Conc 29.2 g/dl (31.0-35.0); Mean Corpuscular Hemoglobin 29.4 pg (27.0-33.0); Mean Corpuscular Volume 100.7 fL (80-98); Mean Platelet Volume 11.1 fL (9.4-12.3); Platelet Count 197 X10*3/uL (160-400); Red Blood Count 2.89 X10*6/uL (4.20-5.50); Red Cell Distribution Width 15.1 % (11.0-16.0); White Blood Count 8.3 X10*3/uL (4.8-10.8)
[2020-08-15 08:45] LABS: Anion Gap 18 (12-20); Blood Urea Nitrogen 37 mg/dL (9-16); Calcium 8.2 mg/dL (8.4-10.2); Carbon Dioxide 26 mmol/L (22-29); Chloride 99 mmol/L (96-108); Estimated Glomerular Filt Rate 8; Glucose Random 112 mg/dL (60-115); Potassium 4.7 mmol/L (3.3-5.1); Sodium 138 mmol/L (135-145)
== END 2020-08-15 00:39 | disposition home or self-care (01) ==
LOC: HO.MMNH1L 00:38
PROVIDERS: Visit Provider Family Medicine
DX: E11.22 Type 2 diabetes mellitus with diabetic chronic kidney disease (principal); N18.6 End stage renal disease
CPT/HCPCS: 36415; 80048; 85027

== ENCOUNTER 2020-08-22 10:26 | Outpatient (REF) | payer MEDICARE, SELFPAY ==
[2020-08-22 07:51] LABS: Hematocrit 26.2 % (37-47); Hemoglobin 7.5 g/dl (12.0-16.0); Mean Corpuscular HGB Conc 28.6 g/dl (31.0-35.0); Mean Corpuscular Hemoglobin 28.7 pg (27.0-33.0); Mean Corpuscular Volume 100.4 fL (80-98); Mean Platelet Volume 11.2 fL (9.4-12.3); Platelet Count 138 X10*3/uL (160-400); Red Blood Count 2.61 X10*6/uL (4.20-5.50); Red Cell Distribution Width 15.1 % (11.0-16.0); White Blood Count 6.2 X10*3/uL (4.8-10.8)
[2020-08-22 09:07] LABS: Anion Gap 20 (12-20); Blood Urea Nitrogen 36 mg/dL (9-16); Calcium 8.1 mg/dL (8.4-10.2); Carbon Dioxide 24 mmol/L (22-29); Chloride 99 mmol/L (96-108); Estimated Glomerular Filt Rate 9; Glucose Random 49 mg/dL (60-115); Potassium 5.7 mmol/L (3.3-5.1); Sodium 137 mmol/L (135-145)
== END 2020-08-22 10:27 | disposition home or self-care (01) ==
LOC: HO.MMNH1L 10:26
PROVIDERS: Visit Provider Family Medicine
DX: N76.0 Acute vaginitis (principal); B96.89 Other specified bacterial agents as the cause of diseases classified elsewhere; E11.22 Type 2 diabetes mellitus with diabetic chronic kidney disease; N18.6 End stage renal disease
CPT/HCPCS: 36415; 80048; 85027; 99202

== ENCOUNTER 2020-08-22 10:30 | Outpatient (REF) | payer MEDICARE, SELFPAY ==
[2020-08-22 13:55] LABS: CT PCR NOT DETECTED (Not Detect.); NG PCR NOT DETECTED (Not Detect.)
[2020-08-23 12:06] LABS: BV Int Neg Control Negative (Negative); BV Int Pos Control Positive (Positive)
== END 2020-08-22 10:31 | disposition home or self-care (01) ==
LOC: HO.LAB 10:30
PROVIDERS: Visit Provider Obstetrics & Gynecology
DX: Z11.3 Encounter for screening for infections with a predominantly sexual mode of transmission (principal); N76.0 Acute vaginitis; B96.89 Other specified bacterial agents as the cause of diseases classified elsewhere
CPT/HCPCS: 87480; 87491; 87510; 87591; 87660

== ENCOUNTER 2020-08-29 00:33 | Outpatient (REF) | payer MEDICARE, SELFPAY ==
[2020-08-29 08:14] LABS: Hematocrit 25.5 % (37-47); Hemoglobin 7.3 g/dl (12.0-16.0); Mean Corpuscular HGB Conc 28.6 g/dl (31.0-35.0); Mean Corpuscular Hemoglobin 28.9 pg (27.0-33.0); Mean Corpuscular Volume 100.8 fL (80-98); Mean Platelet Volume 11.4 fL (9.4-12.3); Platelet Count 200 X10*3/uL (160-400); Red Blood Count 2.53 X10*6/uL (4.20-5.50); Red Cell Distribution Width 14.6 % (11.0-16.0); White Blood Count 6.6 X10*3/uL (4.8-10.8)
[2020-08-29 09:01] LABS: Anion Gap 20 (12-20); Blood Urea Nitrogen 41 mg/dL (9-16); Calcium 8.4 mg/dL (8.4-10.2); Carbon Dioxide 25 mmol/L (22-29); Chloride 101 mmol/L (96-108); Estimated Glomerular Filt Rate 8; Glucose Random 126 mg/dL (60-115); Potassium 5.9 mmol/L (3.3-5.1); Sodium 140 mmol/L (135-145)
== END 2020-08-29 00:34 | disposition home or self-care (01) ==
LOC: HO.MMNH1L 00:33
PROVIDERS: Visit Provider Family Medicine
DX: E11.22 Type 2 diabetes mellitus with diabetic chronic kidney disease (principal); N18.6 End stage renal disease
CPT/HCPCS: 36415; 80048; 85027

== ENCOUNTER 2020-09-03 13:02 | Emergency (ER) | payer MEDICARE, SELFPAY ==
--- NOTE | 2020-09-03 13:22 | ED.CPR ---
HPI - CPR General Chief Complaint: Cardiac Arrest/CPR Stated Complaint: cardiac arrest Time Seen by Provider: 09/03/20 13:20 History of Present Illness HPI narrative: This is a 75 years old female with history of chronic renal failure on dialysis, history of COPD, history of diabetes history of morbid obesity that was at the at the dialysis unit today receiving dialysis she was complaining of shortness of breath and she arrested. She arrived to the emergency department in full cardiac arrest with CPR ongoing she had already all fall or of ACLS protocol including epinephrine/CPR endotracheal intubation MD complaint: other (Arrested during hemodialysis) Onset (ago): minute(s) (45) Timing confirmed by: other (EMS) Place: other (dyalisis) Bystander CPR performed: Yes Shock advised: No Initial findings in the field: unresponsive and PEA ROSC in the field: No Associated injuries: No Known history of: other (CRF) Treatments prior to arrival: intubation, BMV, chest compressions and epinephrine mgs # Related Data Home Medications Medication Instructions Recorded Confirmed Carlos Rao U-300 Insulin 34 unit SUBCUT BEDTIME 07/06/20 07/13/20 acetaminophen 500 mg PO Q6H PRN 07/06/20 07/13/20 aspirin 81 mg PO DAILY 07/06/20 07/13/20 calcitriol 0.25 mcg PO MOWEFR@0900 07/06/20 07/13/20 cholecalciferol (vitamin D3) 50 mcg PO DAILY 07/06/20 07/13/20 [Vitamin D3] docusate sodium 100 mg PO BID 07/06/20 07/13/20 ferrous sulfate 325 mg PO DAILY 07/06/20 07/13/20 gabapentin 300 mg PO BID 07/06/20 07/13/20 hydralazine 100 mg PO BID 07/06/20 07/13/20 insulin lispro [Humalog KwikPen See Protocol SUBCUT TID 07/06/20 07/13/20 Insulin] lovastatin 40 mg PO BEDTIME 07/06/20 07/13/20 sennosides [Senna Lax] 8.6 mg PO BEDTIME 07/06/20 07/13/20 Previous Rx's Medication Instructions Recorded lorazepam 0.5 mg tablet 0.5 mg PO BID PRN #180 tab 02/17/20 polyethylene glycol 3350 [Miralax] 17 g PO DAILY #30 ea 07/12/20 lorazepam [Ativan] 0.5 mg PO BID PRN #30 tab 07/14/20 famotidine 20 mg tablet 20 mg PO DAILY #90 tab 08/02/20 oxycodone 5 mg tablet 5 mg PO Q6H PRN #120 tab 08/08/20 metronidazole 0.75 % vaginal gel 1 appful VAGINAL BEDTIME 5 Days 08/22/20 #70 g oxycodone 5 mg tablet 5 mg PO Q6H PRN #30 tab 08/30/20 Allergies Allergy/AdvReac Type Severity Reaction Status Date / Time pregabalin Allergy Unknown feet Verified 08/22/20 08:29 swelling Review of Systems Review of Systems: Yes Unobtainable due to mental status PMFSH Past Medical History Medical History ALEJANDRO (acute kidney injury) Anemia Chronic diastolic (congestive) heart failure CKD (chronic kidney disease), stage V COPD (chronic obstructive pulmonary disease) Diabetes type 2, uncontrolled ESRD (end stage renal disease) Morbid obesity Surgical History History of cystoscopy History of right cataract surgery History of tubal ligation Family History Family History Father Lung cancer Mother Hypertension Social History Social History Household Members: Children Housing: House Alcohol intake: never Smoking Status: Former smoker Advance Directives: Yes Advance Directives on File: Yes Advance Directives Date on File: 07/14/20 service: No Current occupational status: retired Physical Exam Const: Other: Unresponsive and CPR ongoing HENMT: Head: Yes normal to inspection Face and sinus: Yes normal facial exam Mouth: other (Orally intubated) Eyes: General: appearance normal, both eyes and all related structures Neck: Neck: Yes normal visual inspection Resp: Effort & Inspection: normal respiratory effort Cardio: Other: No heart sounds GI: Other: Abdomen is obese Skin: Other: Cyanotic Neuro: Other: Unresponsive Course Course Course Narrative: The patient arrived in full arrest the CPR ongoing we continued the resuscitation over about the 20minutes according to ALS protocol despite that the patient remained pulseless, a bedside echo was performed by me exam showed cardiac standstill the patient was pronounced at 1319 Reevaluation(s) Reevaluation #1: met with her 3 children daughter and 2 sons Time: 13:34 Reevaluation #2: Spoke with ME Time: 14:35 MDM - Cardiac Arrest/CPR Lab Data Labs: Lab Results 09/03/20 Range/Units 13:09 POC Glucose 149 H (60-115) mg/dL Discharge Plan Discharge Clinical Impression: Cardiac arrest Patient Disposition: Date/Time: 09/03/20 13:19
[2020-09-03 13:45] LABS: Glucose, Whole Blood 149 mg/dL (60-115)
--- NOTE | 2020-09-03 14:11 | PC.NURSE ---
[facility] called by this RN. Family has been at bedside. Marisela Peters, daughter, . home is [facility]
--- NOTE | 2020-09-03 14:19 | PC.NURSE ---
Pt is accepted by [facility].
--- NOTE | 2020-09-03 14:29 | PC.NURSE ---
certified medical assistant calling with questions. will call again.
--- NOTE | 2020-09-03 15:06 | PC.NURSE ---
ME DECLINED CASE.
== END 2020-09-03 16:12 | disposition expired ==
PROVIDERS: Emergency Provider Emergency Medicine; PCP Family Medicine
DX: I46.9 Cardiac arrest, cause unspecified (principal); E11.22 Type 2 diabetes mellitus with diabetic chronic kidney disease; I13.2 Hypertensive heart and chronic kidney disease with heart failure and with stage 5 chronic kidney disease, or end stage renal disease; N18.6 End stage renal disease; I50.9 Heart failure, unspecified; Z99.2 Dependence on renal dialysis; J44.9 Chronic obstructive pulmonary disease, unspecified; E66.01 Morbid (severe) obesity due to excess calories; Z79.4 Long term (current) use of insulin; Z79.82 Long term (current) use of aspirin; Z79.899 Other long term (current) drug therapy; Z79.02 Long term (current) use of antithrombotics/antiplatelets
CPT/HCPCS: 82947; 99282; 99284